=== PATIENT | female | born 1965 | race Caucasian/White ===

== ENCOUNTER 2017-03-23 11:10 | Inpatient (IN) | payer BC ==
[2017-03-23] MEDS ORDERED: NITROGLYCERIN SL TABS 0.4 MG TAB SUBLINGUAL PRN (14:36)
[2017-03-23] MEDS ORDERED: ALBUTEROL NEBULIZED 2.5 MG/3 ML INHALATION PRN (14:39)
[2017-03-23 15:52] LABS: INR 1.1 (<1.2); Partial Thromboplastin Time 24.9 sec (22.0-30.0); Prothrombin Time 11.1 sec (9.0-12.0)
[2017-03-23 15:53] LABS: ALT 36 U/L (9-52); AST 23 U/L (14-36); Alkaline Phosphatase 58 U/L (38-126); Anion Gap 9 mmol/L; Blood Urea Nitrogen 9 mg/dL (7-17); Calcium 9.3 mg/dL (8.4-10.2); Carbon Dioxide 27 mmol/L (22-30); Chloride 103 mmol/L (98-107); Glucose 104 mg/dL (74-99); Magnesium 1.6 mg/dL (1.6-2.3); Non-African American GFR(MDRD) >60 (>60 ml/min/1.73 sqM); Potassium 4.3 mmol/L (3.5-5.1); Sodium 139 mmol/L (137-145); Total Bilirubin 0.9 mg/dL (0.2-1.3); Total Protein 6.2 g/dL (6.3-8.2)
[2017-03-23 15:54] LABS: Basophils % (A) 1 %; CHCM 34.3; Eosinophils # (A) 0.1 k/uL (0-0.7); Eosinophils % (A) 2 %; HCT 39.4 % (34.0-46.0); HDW 2.46; HGB 13.1 gm/dL (11.4-16.0); Luc # (Auto) 0.14; Luc % (Auto) 3; Lymphocytes # (A) 1.8 k/uL (1.0-4.8); Lymphocytes % (A) 34 %; MCH 31.3 pg (25.0-35.0); MCHC 33.3 g/dL (31.0-37.0); MCV 93.9 fL (80.0-100.0); Mean Platelet Volume 7.5; Monocytes # (A) 0.3 k/uL (0-1.0); Monocytes % (A) 5 %; Neutrophils # (A) 2.9 k/uL (1.3-7.7); Neutrophils % (A) 56 %; RDW 13.6 % (11.5-15.5); WBC 5.3 k/uL (3.8-10.6); WBC (Perox) 5.69
[2017-03-23] MEDS ORDERED: ALPRAZolam 0.25 MG TAB PO SCH (16:00)
[2017-03-23 16:03] LABS: Creatine Kinase 45 U/L (30-135)
[2017-03-23 16:16] LABS: Creatine Kinase MB <0.2 ng/mL (0.0-2.4); Troponin I <0.012 ng/mL (0.000-0.034)
[2017-03-23] MEDS: HEPARIN SODIUM,PORCINE 5,000 UNIT/ML 1 ML VIAL SQ SCH ×2 (17:00→21:14)
[2017-03-23] MEDS: SODIUM CHLORIDE 0.9% 1,000 ML IV SCH ×2 (17:03→22:40)
[2017-03-23] MEDS: CARVEDILOL 3.125 MG TAB PO SCH (18:25)
[2017-03-23] MEDS: RANOLAZINE 500 MG TAB.ER.12H PO SCH (21:04)
[2017-03-23] MEDS: CITALOPRAM HYDROBROMIDE 20 MG TAB PO SCH (21:04)
--- NOTE | 2017-03-23 21:35 | HP ---
DATE OF ADMISSION: 03/23/2017 CHIEF COMPLAINT: Shortness of breath with chest pain. This is a 51-year-old white female who has had a blood pressure that has been down between 80 and 90 going into nearly a week, decreasing her Demadex, and blood pressure has been up to somewhere between 90 and 100, and then she has also had shortness of breath and non-specific chest pain. She had one episode of diaphoresis. A troponin was done which was negative. The episodes have been much less this last weekend, but because of their consistency and her long- standing history of coronary artery disease, she was placed in the hospital accordingly. She has a past medical history of: 1. Advanced coronary artery disease. On 03/19/12 she had a 3-vessel bypass at [facility] in [place]. She had stent placements x2 on 12/07/13 at the same hospital. 2. Long-standing history of hyperlipidemia. 3. Long-standing history of coronary artery disease in the family. 4. She has had some GE reflux. 5. Tobacco abuse up to 1 pack a day. 6. Anxiety neurosis. 7. Previous myocardial infarction. Her medications at this time are: 1. Atorvastatin 40 mg at bedtime. 2. Singulair 10 mg a day. 3. Holly-24 p.r.n. 4. Centrum vitamin. 5. Ranexa 500 mg b.i.d. 6. Aspirin 81 mg. 7. Flonase 50 mg in the right and left nostril in the morning. 8. Xanax 0.25 p.r.n. q.6 hours for anxiety. 9. Ventolin inhaler 2 puffs q.6 hours p.r.n. 10. Coreg 3.125; 2 in the morning, one at bedtime. 11. Zetia 10 mg. 12. Omeprazole 20 mg. 13. Potassium chloride 8 mg. 14. ( ) 15 mg p.r.n. to sleep. 15. Plavix 75. 16. Celexa 20 mg at bedtime. HER SURGICAL HISTORY: 1. Wrist fracture on 08/29/2010. 2. Septoplasty [address] Dr. Higuera in 06/2013. She is taken care of by Dr. Avendaño and has seen him most recently in October of 2016. REVIEW OF SYSTEMS: CARDIOPULMONARY: Shortness of breath. One episode of diaphoresis. Dyspnea with minimal amount of exertion. No paroxysmal nocturnal dyspnea. Two-pillow orthopnea. No cough. No shortness of breath. Negative chest x-ray in the office. GI: No hematemesis, melena, hematochezia. No constipation. No diarrhea. : Normal urination. NEUROMUSCULAR: Good strength in her arms and her legs. She has no back problems. INTEGUMENTARY: The skin has been normal. ENDOCRINE: No excessive weight gain. No extreme fatigue. PHYSICAL EXAMINATION: Today blood pressure was 100/80. She weighed in at 133. Temperature 98.7. Pulse rate was 67. Oxygen saturation was 98%. A Holter monitor that she finished on Thursday was reviewed. She had a few PVCs; otherwise within normal limits. The patient is alert and well oriented to person, place and thing; a little bit anxious, but no evidence of depression. EYES: Pupils are equal, round, reactive to light and accommodation. Good extraocular movements. ENT showed tympanic membranes and pharynx to be negative. NECK: Supple with midline trachea. Good carotid upstroke. CHEST: Essentially clear to auscultation. HEART: Sinus rhythm with no murmur. ABDOMEN: Soft, non-tender, with no organomegaly. EXTREMITIES: She has good strength bilaterally, both upper and lower. She has good palpable lower extremity pulses. Rectal and pelvic examination was deferred. LUMBAR SPINE: Major motion is within normal limits. INTEGUMENT: Fine. ENDOCRINE: Within normal limits, with no excessive hair loss, growth. ASSESSMENT: 1. Acute coronary artery disease with history of 3-vessel CABG. 2. Hyperlipidemia. 3. Percutaneous stent placement on 12/07/13. 4. Now hypotension. 5. Acute angina-type symptoms. 6. Gastroesophageal reflux. 7. Allergic rhinitis. 8. History of wheeze. PLAN: Renewed all her medications. Put her into hospital accordingly. Heparinized her. Will have Cardiology see her with the possibility of a stress test versus probable cardiac catheterization. Please refer to my orders. MTDD
[2017-03-23] MEDS: ALPRAZolam 0.25 MG TAB PO PRN (22:41)
[2017-03-24] MEDS ORDERED: AMINOPHYLLINE 500 MG/20 ML VIAL IV PRN (07:50)
[2017-03-24] MEDS ORDERED: REGADENOSON 0.4 MG/5 ML SYRINGE IV ONE (07:50)
[2017-03-24] MEDS ORDERED: CLOPIDOGREL 75 MG TAB PO SCH (09:00)
--- NOTE | 2017-03-24 11:05 | NM ---
EXAMINATION TYPE: NM stress lexiscan cardiolite DATE OF EXAM: 03/24/2017 COMPARISON: NONE HISTORY: Precordial chest pain and abnormal EKG TECHNIQUE: After the intravenous administration of 10.7 mCi Tc 99m Sestamibi - Cardiolite resting SP ECT images acquired 45 minutes post injection. The patient received 0.4mg Lexiscan, 26.9 mCi Tc 99m Sestamibi - Stress images obtained [address] injection FINDINGS: Review of stress and rest SPECT images demonstrates worsening decreased perfusion involving the anter ior wall as well as the anteroapical region. Underlying stress-induced ischemia is not excluded. [place] d analysis shows normal wall motion with an estimated left ventricular ejection fraction of %. IMPRESSION: worsening decreased perfusion involving the anterior wall as well as the anteroapical region. Underly ing stress-induced ischemia is not excluded.
--- NOTE | 2017-03-24 11:24 | EST ---
DATE OF SERVICE: 03/24/17 TYPE OF REPORT: Lexiscan Stress Test INDICATIONS: Evaluation for progression of coronary artery disease in a patient with previous bypass surgery, PCI and hospitalization with chest pain without troponin elevation. BASELINE HEART RATE: 54 BASELINE BLOOD PRESSURE: 125/63 MAXIMUM HEART RATE: 99 MAXIMUM BLOOD PRESSURE: 116/73 85% MPHR 144 100% MPHR 169 METS: MAXIMUM STAGE REACHED: TOTAL EXERCISE TIME: Baseline EKG revealed a normal sinus rhythm without significant ST-T changes. There were minor nonspecific ST abnormalities in the lateral leads noted. Poor R wave progression was noted. With Lexiscan administration, the patient had nondescript burning sensation in the chest that was transient. Heart rate changed from 54 to 95 beats a minute and blood pressure changed to 105/63 to 116 /63. EKG remained unchanged with mild resting changes. By EKG criteria, this is considered an unremarkable Lexiscan stress test even though there were minor resting changes to begin with. The patient did not have any clear cut angina. The nuclear scans which are more pertinent will be reported by the radiologist. MADONNA
--- NOTE | 2017-03-24 11:24 | ECHOF ---
Referral Reason:chest pain MEASUREMENTS -------- HEIGHT: 162.6 cm WEIGHT: 60.3 kg BP: 100/65 RVIDd: 2.5 cm (< 3.3) IVSd: 1.1 cm (0.6 - 1.1) LVIDd: 4.0 cm (3.9 - 5.3) LVPWd: 1.1 cm (0.6 - 1.1) IVSs: 1.4 cm LVIDs: 2.7 cm LVPWs: 1.4 cm LA Diam: 2.6 cm (2.7 - 3.8) LAESV Index (A-L): 22.57 ml/m Ao Diam: 3.2 cm (2.0 - 3.7) AV Cusp: 1.9 cm (1.5 - 2.6) MV EXCURSION: 17.701 mm (> 18.000) MV EF SLOPE: 83 mm/s (70 - 150) EPSS: 0.4 cm MV E Alfredo: 0.72 m/s MV DecT: 284 ms MV A Alfredo: 0.75 m/s MV E/A Ratio: 0.96 RAP: 5.00 mmHg RVSP: 23.14 mmHg FINDINGS -------- Sinus rhythm. This was a technically good study. The left ventricular size is normal. There is borderline concentric left ventricular hypertrophy. Overall left ventricular systolic function is low-normal with, an EF between 50 - 55 %. Septal wall motion is delayed and consistent with prior cardiac surgery. Mid anterior LV wall motion is hypokinetic. The right ventricle is normal in size. Normal LA size by volume 22+/-6 ml/m2. The right atrium is normal in size. The aortic valve is trileaflet and appears structurally normal. Mild mitral regurgitation is present. Mild tricuspid regurgitation present. Right ventricular systolic pressure is normal at < 35 mmHg. Trace/mild (physiologic) pulmonic regurgitation. The aortic root size is normal. Normal inferior vena cava with normal inspiratory collapse consistent with estimated right atrial pressure of 5 mmHg. There is no pericardial effusion. CONCLUSIONS -------- 1. Sinus rhythm. 2. The right atrium is normal in size. 3. The aortic valve is trileaflet and appears structurally normal. 4. Mild mitral regurgitation is present. 5. Mild tricuspid regurgitation present. 6. Right ventricular systolic pressure is normal at < 35 mmHg. 7. Trace/mild (physiologic) pulmonic regurgitation. 8. The aortic root size is normal. 9. Normal inferior vena cava with normal inspiratory collapse consistent with estimated right atrial pressure of 5 mmHg. 10. There is no pericardial effusion. 11. This was a technically good study. 12. The left ventricular size is normal. 13. There is borderline concentric left ventricular hypertrophy. 14. Overall left ventricular systolic function is low-normal with, an EF between 50 - 55 %. 15. Septal wall motion is delayed and consistent with prior cardiac surgery. 16. Mid anterior LV wall motion is hypokinetic. 17. The right ventricle is normal in size. 18. Normal LA size by volume 22+/-6 ml/m2. POWER ELECTRONICS RESEARCH ENGINEER: Carli Linton RDCS
[2017-03-24] MEDS ORDERED: SODIUM CHLORIDE 0.9% 1,000 ML in EMPTY BAG 1 BAG IV ONE (11:53)
--- NOTE | 2017-03-24 12:02 | P.PN ---
Progress Note - Text Lexiscan stress test report indicates worsening decreased perfusion involving the anterior wall as well as the freddy-apical region. Underlying stress- induced ischemia cannot be excluded. Dr. DANIELLE Avendaño aware. We will plan for cardiac catheterization tomorrow morning at 8:30. Case has been boarded and orders have been placed. Results have been explained to patient and her , questions answered appropriately with verbalized understanding. I have discussed the risks, benefits and alternative therapies for the above-mentioned procedure and for both sedation/analgesia as well as necessary blood product administration, if indicated, as they pertain to this patient. The patient has indicated understanding and acceptance of the risks and procedures discussed. She agrees to move forward with the procedure as scheduled. Nurse Practitioner note has been reviewed, I agree with a documented findings and plan of care. Patient was seen and examined.
[2017-03-24] MEDS: MONTELUKAST 10 MG TAB PO SCH (12:10)
[2017-03-24] MEDS: ASPIRIN 81 MG CHEW PO SCH (12:10)
[2017-03-24] MEDS: RANOLAZINE 500 MG TAB.ER.12H PO SCH ×2 (12:10→22:36)
[2017-03-24] MEDS: PANTOPRAZOLE 40 MG TABLET PO SCH (12:10)
[2017-03-24] MEDS: ATORVASTATIN 40 MG TAB PO SCH (12:10)
[2017-03-24] MEDS: POTASSIUM CHLORIDE ER 10 MEQ TAB.ER.PRT PO SCH (12:10)
[2017-03-24] MEDS: CARVEDILOL 3.125 MG TAB PO SCH ×2 (12:10→22:47)
[2017-03-24] MEDS: EZETIMIBE 10 MG TAB PO SCH (12:11)
[2017-03-24] MEDS: MULTIVITAMINS, THERA 1 EACH TAB PO SCH (12:11)
[2017-03-24] MEDS: HEPARIN SODIUM,PORCINE 5,000 UNIT/ML 1 ML VIAL SQ SCH ×2 (12:11→22:36)
--- NOTE | 2017-03-24 12:28 | PN ---
This is a 51 -year-old white female with well known established history of coronary artery disease who has noticed over the last ten days blood pressure is systolic between 80 and 90. We decreased her Demadex and blood pressure has been up some to right around 190. Unfortunately, she continues with shortness of breath and nonspecific chest pain, mostly exertional in nature. She has longstanding history of coronary artery disease and she has not felt like this since before her bypass surgery or before stent placement. The episodes have been episodic. We have tried different outpatient treatment modalities after her troponin was negative including dropping her Demadex which brought up her blood pressure. At this period of time, her chest pain continued, both exertional and nonexertional. She was placed in the hospital accordingly. She has past medical history of advanced coronary artery disease. On 03/19/12 she had three vessel bypass at [facility] and then she had two stent placements on 12/07/13 at the same hospital. She has longstanding history of hyperlipidemia. There is longstanding history of coronary artery disease in the family. She has GE reflux, tobacco use up to a pack a day, previous anxiety neurosis and previous myocardial infarction. Her anxiety is moderate. 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 Her medications include that of: 1. Atorvastatin 40 mg at bedtime. 2. Singulair 10 mg daily. 3. Holly 24 plain. 4. Centrum vitamin. 5. Ranexa 500 mg b.i.d. 6. Lasix 81 mg daily. 7. Flonase nasal spray in the morning. 8. Xanax 0.25 o1xtlep prn. 9. Ventolin inhalation two puffs four times a day prn wheeze. 10. Coreg 3.125 b.i.d. 11. Zetia 10 mg. 12. Omeprazole 20 mg daily. 13. Potassium chloride 8 meq. 14. Belsoma 15 mg prn for insomnia. 15. Plavix 75 one daily. 16. Celexa 20 mg daily. Her surgical history is that of a right wrist fracture repaired by Dr. Horan on 08/29/10. Septoplasty by Dr. Higuera 06/2013. Dr. Mari Avendaño is her occupational therapy manager and most recently saw him in October 2016. Her review of systems at this time has been shortness of breath for cardiopulmonary including last night was persistent shortness of breath. No diaphoresis last night but she has had several over the last week, dyspnea with a minimal amount of exertion even going to the bathroom. No paroxysmal nocturnal dyspnea. She has two pillow orthopnea. No cough or shortness of breath. Her chest x-ray in the office was negative. GI: She has no hematemesis, melena, hematochezia. No constipation or diarrhea. : Normal urination. No urinary tract infections previously. Neuromuscular: She has good strength in her arms and legs. She does not have back pain at this time. Integumentary: Her skin has been normal. Endocrine: No excessive weight gain. No fatigue. Her vital signs this morning: She is alert, well oriented to person, place and thing. Anxious to get things underway. Her blood pressure this morning is 96 /57. Her heart rate is 57. Temperature is 97.8. O2 sat 96 on room air. EYES: Pupils equal, round, reactive to light and accommodation. ENT showed tympanic membranes and pharynx to be negative. Neck is supple with midline trachea. Chest essentially clear to auscultation. Heart is sinus rhythm with no murmur. Abdomen soft, nontender with no organomegaly. Extremities within normal limits. Skin is within normal limits. Laboratory data: CBC within normal limits. Chem-17 within normal limits. ASSESSMENT: 1. Coronary artery disease with three vessel bypass and two stent placement. 2. Hyperlipidemia. 3. Resolving hypotension, acute angina type symptoms. 4. GE reflux. 5. Allergic rhinitis. 6. History of wheeze. Reviewed all medications. Put her in the hospital. She has been heparinized. Cardiology to see her with probability of cardiac cath. [facility]
--- NOTE | 2017-03-24 12:40 | CONS ---
This is a 51-year-old lady with a known history of CAD, previous bypass surgery and PCI who was seen by me in October of this year. In 2014, she had a Lexiscan stress test, which revealed a small area of partial reversibility probably in the diagonal distribution and the diagonal vein graft is occluded. Ejection fraction was actually fairly well preserved. Atypical septal motion was noted. She has been doing well on medical therapy, but of late she first had some episodes of hypotension. Her Demadex, which was on 20 mg ( ) was cut down and then she started having increasing shortness of breath with physical activity and then developed chest pressure suggestive of angina. With these symptoms, she came into the hospital. She is resting comfortably at this time. Troponins are normal. EKG does not reveal any acute changes. I am recommending that we will do a Lexiscan stress test. Continue current medical regimen and an echocardiogram and based on clinical course I will make further recommendations. PAST MEDICAL HISTORY: 1. CAD with previous bypass surgery that was performed in March of [address] [place]. As recently as 2013, she had a coronary angiography and balloon angioplasty of circumflex along with 2 drug eluting stents to the circumflex vessel. Apparently, the [place] circumflex was opened up and vein graft of the circumflex as well as the diagonal was occluded, but the left internal mammary artery to LAD was widely patent. Since then, she has had a stress test in August of 2014, which revealed that the circumflex distribution was well perfused, but the diagonal distribution still had a fixed defect with partial reversibility. Stenting of circumflex was performed in November ( ) with 2 drug eluting stents of 2.5 and 2.25 caliber respectively. Her RINCON to LAD was widely patent, but the vein graft to the diagonal and the circumflex are occluded. Diagonal branch was not intervened. 2. Hypertension. 3. Hyperlipidemia. 4. Strong family history of CAD. 5. History of smoking in the past, which she claims she has quit completely. Medications at home include: Aspirin 81 mg daily, Plavix 75 mg daily, BuSpar 10 mg b.i.d., Ranexa 500 mg b.i.d. She takes Demadex and potassium, albuterol inhaler, carvedilol 3.125 mg b.i.d., Lipitor 40 mg daily, Zetia 10 mg daily. She also takes Celexa 20 mg daily. ALLERGIES: No known drug allergies. On examination, blood pressure initially was low, but this morning as it is about 109/70, pulse rate is 68 per minute and regular. HEENT: Unremarkable. Fundus was not examined by me. Neck is supple. No JVD. I do not hear any carotid bruit. There is no thyromegaly. Heart exam reveals S1, S2 heard normally without a rub, murmur or gallops. Lungs are clear. Abdomen is soft, nontender. Lower extremities reveal normal pulses. No edema. Central nervous system is normal. EKG revealed sinus mechanism with minor nonspecific ST-T changes. IMPRESSION: 1. Symptoms suggestive of unstable angina in a patient with a prior bypass surgery and PCI. 2. History of coronary artery bypass graft in 2011, March, with 2 vein grafts to the diagonal and circumflex, both of which were occluded on a cath of 2013. 3. Left internal mammary artery to left anterior descending artery is patent. 4. Status post PCI of circumflex with 2 drug eluting stents in November of 2013. 5. Hyperlipidemia. 6. Family history of coronary artery disease. 7. Past history of smoking. RECOMMENDATIONS: I am recommending an echo, a Lexiscan stress test and based on this, I will make further recommendations. Patient's troponins are normal and she has not had any recurrence of symptoms while she was here. Thank you very much for the consult. MADONNA
[2017-03-24] MEDS ORDERED: HEPARIN SODIUM,PORCINE 5,000 UNIT/ML 1 ML VIAL IV PRN (13:50)
[2017-03-24] MEDS ORDERED: HEPARIN SODIUM,PORCINE/D5W PMX 25,000 UNIT in DEXTROSE/WATER 1 500ML.BAG IV SCH (14:00)
[2017-03-24 14:59] LABS: INR 1.1 (<1.2); Partial Thromboplastin Time 25.7 sec (22.0-30.0)
[2017-03-24] MEDS: ACETAMINOPHEN TAB 325 MG TAB PO PRN (19:26)
[2017-03-24] MEDS: NITROGLYCERIN OINT 1 INCH/GM PACKET TOPICAL SCH (19:26)
[2017-03-24] MEDS: DEXTROSE 5%-0.45% NACL 1,000 ML IV SCH (19:56)
[2017-03-24] MEDS: CITALOPRAM HYDROBROMIDE 20 MG TAB PO SCH (22:36)
[2017-03-24] MEDS: ALPRAZolam 0.25 MG TAB PO PRN (22:46)
[2017-03-25] MEDS: NITROGLYCERIN OINT 1 INCH/GM PACKET TOPICAL SCH ×2 (02:48→06:05)
[2017-03-25] MEDS ORDERED: ASPIRIN 325 MG TAB PO ONE (06:00)
[2017-03-25] MEDS: HEPARIN SODIUM,PORCINE 5,000 UNIT/ML 1 ML VIAL SQ SCH ×2 (06:05→21:01)
[2017-03-25] MEDS: ASPIRIN 81 MG CHEW PO SCH (06:05)
[2017-03-25] MEDS: DEXTROSE 5%-0.45% NACL 1,000 ML IV SCH ×2 (06:23→16:14)
[2017-03-25] MEDS: RANOLAZINE 500 MG TAB.ER.12H PO SCH ×2 (06:54→21:21)
[2017-03-25] MEDS: EZETIMIBE 10 MG TAB PO SCH (06:54)
[2017-03-25] MEDS: PANTOPRAZOLE 40 MG TABLET PO SCH (06:54)
[2017-03-25] MEDS: CLOPIDOGREL 75 MG TAB PO SCH ×2 (06:55→16:07)
[2017-03-25] MEDS: MONTELUKAST 10 MG TAB PO SCH (06:55)
[2017-03-25] MEDS: POTASSIUM CHLORIDE ER 10 MEQ TAB.ER.PRT PO SCH (06:55)
[2017-03-25] MEDS: ATORVASTATIN 40 MG TAB PO SCH (06:55)
[2017-03-25 07:33] LABS: Basophils % (A) 1 %; CH 31.9; Eosinophils # (A) 0.2 k/uL (0-0.7); Eosinophils % (A) 3 %; HCT 42.6 % (34.0-46.0); Luc # (Auto) 0.15; Luc % (Auto) 2; Lymphocytes # (A) 2.3 k/uL (1.0-4.8); Lymphocytes % (A) 38 %; MCH 30.8 pg (25.0-35.0); MCHC 32.7 g/dL (31.0-37.0); MCV 94.1 fL (80.0-100.0); Mean Platelet Volume 7.6; Monocytes # (A) 0.3 k/uL (0-1.0); Monocytes % (A) 5 %; Neutrophils # (A) 3.2 k/uL (1.3-7.7); Neutrophils % (A) 52 %; RBC 4.53 m/uL (3.80-5.40); RDW 13.8 % (11.5-15.5); WBC 6.1 k/uL (3.8-10.6); WBC (Perox) 6.27
[2017-03-25] MEDS ORDERED: IV FLUID CONTINUATION 1,000 ML IV ONE (09:00)
[2017-03-25] MEDS ORDERED: diphenhydrAMINE 50 MG/ML 1 ML VIAL IVP ONE (09:24)
[2017-03-25] MEDS ORDERED: MIDAZOLAM 2 MG/2 ML VIAL IV ONE ×2 (09:24)
[2017-03-25] MEDS ORDERED: LIDOCAINE 2% INJ 20 MG/ML SQ ONE (09:25)
[2017-03-25] MEDS ORDERED: BIVALIRUDIN BOLUS 250 MG/50 ML IV ONE (09:46)
[2017-03-25] MEDS ORDERED: BIVALIRUDIN 250 MG in SODIUM CHLORIDE 0.9% 50 ML IV ONE (09:47)
[2017-03-25] MEDS: NITROGLYCERIN 1000MCG/10ML SYRINGE INTRAARTER ONE ×2 (10:04→10:10)
[2017-03-25] MEDS ORDERED: CLOPIDOGREL 75 MG TAB PO ONE (10:21)
[2017-03-25] MEDS ORDERED: IOHEXOL 350 MG/ML 100 ML BOTTLE INJ ONE (10:21)
[2017-03-25] MEDS ORDERED: ALBUTEROL NEBULIZED 2.5 MG/3 ML INHALATION PRN (10:27)
[2017-03-25] MEDS ORDERED: MAG HYDROX/AL HYDROX/SIMETH 30 ML CUP PO PRN (10:29)
[2017-03-25] MEDS ORDERED: RX INFO: IV CONTRAST WAS GIVEN 1 EACH MISC MISCELLANE PRN (10:29)
[2017-03-25] MEDS ORDERED: ATROPINE SULFATE 0.1 MG/ML 10ML SYRINGE IV PRN (10:29)
[2017-03-25] MEDS: SODIUM CHLORIDE 0.9% 1,000 ML IV SCH (16:13)
[2017-03-25] MEDS: MULTIVITAMINS, THERA 1 EACH TAB PO SCH (16:17)
--- NOTE | 2017-03-25 16:52 | PN ---
This is a 51-year-old white female who had some blood pressure drops to the 80s and 90s systolically. We decreased her Demadex and her blood pressure than came up to 90 to 100. Of interest was that she was also having shortness of breath and non-specific chest pain with one episode of diaphoresis that was variant over a period of 2 weeks. With increasing her blood pressure, some of this went away. She had a Holter monitor in my office which was basically within normal limits. EKG. Negative troponins. But patient was quite sure this was evidence of previous angina type of symptomatology. She was placed in the hospital at this time for evaluation. Consultation with Dr. Mari Avendaño; he insisted on a stress test before cardiac catheterization. She had a positive stress test and is now having a cardiac catheterization. She has a past medical history of having advanced coronary artery disease. On 05/21 she had 3-vessel bypass at [facility] in [place]. Then she had stent placement x2 on 12/07/13 at the same hospital. Long-time patient of Dr. Juárez in [place] and a patient of [facility] over the last 7 or 8 years. Now she is seeing Dr. Stephania Avendaño in [place]. She has a long-standing history of hypertension. She has advanced coronary artery disease in her family. She has GE reflux. She used to smoke for a good 20 years. She has anxiety neurosis and previous myocardial infarction. Her hyperlipidemia has been stable. She is a non-smoker. She does not have diabetes and her cholesterol has been under excellent control. Medications include: 1. Atorvastatin 40 mg a day. 2. Singulair 10 daily. 3. Holly-24 p.r.n. 4. Centrum vitamin. 5. Ranexa 500 mg b.i.d. 6. Aspirin 81 mg. 7. Flonase 50 mg at night in right and left nostrils. 8. Xanax 0.25 p.r.n. q.6 hours anxiety. 9. Ventolin inhaler 2 puffs 4 times a day. 10. Coreg 3.125 two pills in the morning, one at bedtime. 11. Zetia. 12. Half inch of nitro patch was placed last night when she was having some non- specific chest pain, and it did resolve. 13. Omeprazole 20 mg a day. 14. Potassium chloride 8 mg a day. 15. Belsomra 15 mg at bedtime. 16. Plavix 75 daily. 17. Celexa 20 mg at bedtime. Her previous surgical history is still indicative of: 1. Wrist fracture repair by Dr. Horan on 08/29/14. 2. Septoplasty by Dr. Higuera on 09/29. REVIEW OF SYSTEMS: CARDIOPULMONARY: Shortness of breath. She did have one episode of diaphoresis. She had dyspnea with minimal amount of activity. She had no paroxysmal nocturnal dyspnea. She has 2-pillow orthopnea. No cough. No shortness of breath. Chest x-ray in the negative was negative. GI: No hematemesis, melena, hematochezia. No constipation. No diarrhea. GENITOURINARY: Normal. NEUROMUSCULAR: Good strength in the arms and legs. She has no back problems at this time. INTEGUMENTARY: Skin has been normal. ENDOCRINE: She has no excessive weight gain, but she has had extreme fatigue. NEW LABS TODAY: WBC of 6.1 and hemoglobin 14. Troponin has been negative. VITALS SIGNS AT THIS POINT: Blood pressure 110/64, pulse rate 67, respiratory rate 16. Temperature 98. She is alert and well oriented to person, place and thing. EYES: Pupils are equal, round and reactive to light and accommodation. Good extraocular movements. ( ) conjunctivae normal. ENT shows dry mouth. Tympanic membranes are negative. Neck is supple with a midline trachea. Chest is essentially clear to auscultation. Heart is sinus rhythm with no murmur. Negative S3. Negative S4. Abdomen is soft, non-tender, with no organomegaly. Lower extremities have good palpable pulses bilaterally. She has good strength in her arms and her legs. INTEGUMENTARY: Normal. PSYCHIATRIC: She is anxious but she is alert, well-oriented to person, place and thing. Her back is within normal limits. ASSESSMENT AT THIS POINT: We just finished talking with Dr. Mari Avendaño. I was in the labor operator when it showed that she had basically blockage in her previous stent placement of the circumflex. That was just opened up and she had very, very good response at this point ( ) able to do that. 1. Coronary artery disease with advanced blockage in the circumflex. It was opened up by Dr. Stephania Avendaño. Some moderate disease in the right coronary artery. 2. Previous history of myocardial infarction. 3. Hyperlipidemia. 4. Previous tobacco use; has now stopped for many years. 5. Gastroesophageal reflux. 6. Anxiety neurosis. 7. Mild history of asthma. 8. Depression, which has been stable. PLAN: She had good results. Will continue to monitor her medications. Some basic changes are there. I talked with Dr. Stephania Avendaño and I talked with her life -in boyfriend, Isra. She will be discharged hopefully with no complications in the morning. MADONNA
[2017-03-25] MEDS: CARVEDILOL 3.125 MG TAB PO SCH (18:26)
[2017-03-25] MEDS: ALPRAZolam 0.25 MG TAB PO PRN (21:01)
[2017-03-25] MEDS: ACETAMINOPHEN TAB 325 MG TAB PO PRN (21:01)
[2017-03-25] MEDS: busPIRone HCl 10 MG TAB PO SCH (21:21)
[2017-03-25] MEDS: CITALOPRAM HYDROBROMIDE 20 MG TAB PO SCH (21:21)
--- NOTE | 2017-03-25 21:29 | CC ---
DATE OF SERVICE: 03/25/2017 PROCEDURE: Left heart catheterization, coronary angiography and selective injection of the RINCON graft. PERFORMED BY: Dr. Mari Avendaño CLINICAL INFORMATION: Mrs. Francine Zeng is a 51-year-old lady with a known history of CAD, previous bypass surgery and PCI. She has strong family history of CAD. She came into the hospital with symptoms of angina and had a positive stress test with apical lateral reversible defect suggestive of ischemia in addition to a fixed defect in the mid anterior wall. She was advised coronary angiography after an explanation of risks, benefits, options and rationale. PROCEDURE NOTE: Under local anesthesia and strict aseptic precautions, a 6 German introducer was placed in the right femoral artery. Using a standard left Judkin catheter, I performed selective coronary angiography of the left system. Using a Basilio catheter, I performed selective coronary angiography of the right coronary artery and the RINCON. Patient had actually 3 bypasses. One was a RINCON to LAD. The other 2 are vein grafts to circumflex and diagonal, both of which were occluded, and I therefore did not perform any selective injection of these grafts. Following this, I noted that she had a significant lesion in the circumflex that was stented in 2013. I proceeded to perform intervention in the same setting. Following the intervention, I performed LV pressures but did do an LV gram. Pigtail catheter was used. CARDIAC CATHETERIZATION FINDINGS The left ventricular end-diastolic pressure was about 12 to 13 mmHg without any gradient across the aortic valve. LV gram was not performed. CORONARY ANGIOGRAPHY FINDINGS LEFT MAIN CORONARY ARTERY: Short, patent, disease-free vessel that bifurcates into LAD and circumflex. LEFT ANTERIOR DESCENDING CORONARY ARTERY: This vessel is totally occluded in the mid portion with some diffuse disease involving the diagonal and septal branches, but the LAD has a total mid occlusion. LEFT POSTERIOR CIRCUMFLEX CORONARY ARTERY: This vessel had a stent placed in the first obtuse marginal, which were actually 2 drug-eluting stents placed in the same vessel, 2.5 caliber proximal and 2.25 caliber distally. Within the stented segment at the site where the bypass graft was attached, there is an eccentric 70% to 75% stenosis, which may explain the ischemia on the stress test. The rest of the circumflex had mild diffuse disease noted throughout, but no critical lesions were detected. RIGHT CORONARY ARTERY: This is a dominant vessel; has 30% to 40% minor irregularities throughout. Distally bifurcates into PDA and PLV. Supplies a sizeable amount of myocardium. There is no significant disease noted. LEFT INTERNAL MAMMARY ARTERY GRAFT TO LAD: This graft is widely patent at its origin, course, insertion site, and opacified LAD is free of significant disease. It goes back and fills its diagonal branches to a small extent. No significant disease in the RINCON graft is noted. FINAL IMPRESSION: This patient has restenosis within the stented segment of circumflex. The stent was performed in November 2013. The RINCON to LAD is open. Vein grafts were supposedly closed. [place] RCA, which is dominant, has moderate 30% to 40% non-critical disease. LAD has total occlusion in the mid portion. RECOMMENDATIONS: I recommend intervention of the circumflex marginal and proceeded to perform this in the same setting. SURID
--- NOTE | 2017-03-25 21:43 | PTCA ---
DATE OF SERVICE: 03/26/2017 PROCEDURE: PTCA and stenting of in-sent restenosis within circumflex marginal. PERFORMED BY: Dr. Mari Avendaño. PROCEDURE NOTE: Existing 6 Georgian introducer was used to perform the procedure. A standard left Judkin guide catheter of 6 Georgian caliber was used to cannulate the left coronary artery. I used a Whisper wire with a straight tip and a curve , and with this I crossed the lesion. Predilatation was performed using a 2.5 caliber 12 mm long NC Trek balloon. Then I advanced a 2.5 caliber 12 mm long Xience stent, deployed this at 13 atmospheres, noted that there was still a lesion in the mid portion, and then I went back in with a 3.0 caliber 8 mm long NC Trek balloon of 3.0 caliber and I dilated this at 13 atmospheres. Excellent angiographic result was achieved. Patient had mild chest discomfort, no EKG changes. Patient received Angiomax bolus and infusion as per protocol. Excellent angiographic results without complication was achieved. AngioSeal device was used to secure hemostasis, and she was sent to the room in stable condition. But because of some oozing I applied a FemStop as well. Excellent angiographic result without complication was noted. Results were discussed with the patient and her friend Isra, who was available in the waiting room. Moderate conscious sedation was provided for a total duration of 75 minutes for this patient. Combination of Versed and Benadryl was used. [facility]
[2017-03-26] MEDS: SODIUM CHLORIDE 0.9% 1,000 ML IV SCH (00:03)
[2017-03-26 01:12] VITALS: TEMP 97.3
[2017-03-26 06:17] VITALS: RESP 18
[2017-03-26] MEDS: CARVEDILOL 3.125 MG TAB PO SCH (06:40)
[2017-03-26] MEDS: PANTOPRAZOLE 40 MG TABLET PO SCH (06:40)
[2017-03-26 06:45] LABS: Anion Gap 8 mmol/L; Calcium 9.1 mg/dL (8.4-10.2); Carbon Dioxide 23 mmol/L (22-30); Chloride 111 mmol/L (98-107); Cholesterol 139 mg/dL (<200); Glucose 83 mg/dL (74-99); HDL Cholesterol 50 mg/dL (40-60); Non-African American GFR(MDRD) >60 (>60 ml/min/1.73 sqM); Sodium 142 mmol/L (137-145)
[2017-03-26 06:53] LABS: Blood Urea Nitrogen 9 mg/dL (7-17); Potassium 4.6 mmol/L (3.5-5.1)
[2017-03-26 07:58] LABS: Basophils % (A) 1 %; CH 31.8; CHCM 33.7; Eosinophils # (A) 0.1 k/uL (0-0.7); Eosinophils % (A) 3 %; HCT 38.1 % (34.0-46.0); HDW 2.51; HGB 12.9 gm/dL (11.4-16.0); Luc # (Auto) 0.12; Luc % (Auto) 2; Lymphocytes # (A) 1.4 k/uL (1.0-4.8); Lymphocytes % (A) 27 %; MCH 32.1 pg (25.0-35.0); MCHC 33.9 g/dL (31.0-37.0); MCV 94.8 fL (80.0-100.0); Mean Platelet Volume 7.6; Monocytes # (A) 0.3 k/uL (0-1.0); Monocytes % (A) 6 %; Neutrophils # (A) 3.1 k/uL (1.3-7.7); Neutrophils % (A) 61 %; RBC 4.02 m/uL (3.80-5.40); RDW 13.6 % (11.5-15.5); WBC 5.1 k/uL (3.8-10.6); WBC (Perox) 5.32
[2017-03-26] MEDS ORDERED: BUDESONIDE 0.5 MG/2 ML NEBU INHALATION SCH (08:00)
[2017-03-26] MEDS: ATORVASTATIN 40 MG TAB PO SCH (08:58)
[2017-03-26] MEDS: busPIRone HCl 10 MG TAB PO SCH (08:59)
[2017-03-26] MEDS: CLOPIDOGREL 75 MG TAB PO SCH (08:59)
[2017-03-26] MEDS: HEPARIN SODIUM,PORCINE 5,000 UNIT/ML 1 ML VIAL SQ SCH (09:00)
[2017-03-26] MEDS ORDERED: LORATADINE 10 MG TAB PO SCH (09:00)
[2017-03-26] MEDS: EZETIMIBE 10 MG TAB PO SCH (09:00)
[2017-03-26] MEDS: RANOLAZINE 500 MG TAB.ER.12H PO SCH (09:01)
[2017-03-26] MEDS: POTASSIUM CHLORIDE ER 10 MEQ TAB.ER.PRT PO SCH (09:01)
[2017-03-26] MEDS: MONTELUKAST 10 MG TAB PO SCH (09:01)
[2017-03-26] MEDS: ALPRAZolam 0.25 MG TAB PO PRN (09:13)
[2017-03-26] MEDS: MULTIVITAMINS, THERA 1 EACH TAB PO SCH (11:16)
[2017-03-26 11:59] VITALS: BP 81/55; PULSE 59
--- NOTE | 2017-03-27 21:29 | DS ---
DATE OF ADMISSION: 03/23/2017 DATE OF DISCHARGE: 03/26/2017 DISCHARGE DIAGNOSES: 1. Coronary artery disease with restenosis of circumflex marginal. 2. Hypertension. 3. Previous myocardial infarction. 4. Previous 3-vessel bypass in 2011 followed by placement of 2 stents in 2013. 5. Hyperlipidemia. 6. Anxiety neurosis. 7. Allergic rhinitis. 8. Gastroesophageal reflux. 9. Hypokalemia. Flonase spray into the nose. This is a 51-year-old white female who was admitted with a history of shortness of breath and chest pain that had been going on for up to 2 weeks at that period of time. It was exertional in nature and non-exertional in nature. In the office she had a Holter monitor. She had troponins and she had EKGs, which were negative. Her pressure had dropped. We had decreased her Demadex and she had improved. On the day of admission she had 2 episodes of quick chest pain, basically precordial with minimal spread. At this time her vital signs are stable, with a blood pressure of 113/76, heart rate of 65, respiratory rate of 16 and temperature of 97.3. EYES: Pupils are equal, round and reactive to light and accommodation. ENT showed tympanic membranes. NECK: Supple with midline trachea. CHEST: Essentially clear to auscultation. HEART: Sinus rhythm. ABDOMEN: Soft, non-tender, with no organomegaly. LOWER EXTREMITIES: Within normal limits. At this time she is being discharged. Medications include: 1. Tylenol 650. 2. Albuterol updrafts. 3. Xanax 0.25 q.8. 4. Aspirin 81 daily. 5. Lipitor 40. 6. Pulmicort 0.5 updraft p.r.n. 7. Celexa 20 daily. 8. Coreg 3.125 b.i.d. 9. Plavix 75 daily. 10. Zetia 10 mg daily. 11. Claritin daily. 12. Vitamin daily. 13. Protonix 40 daily. 14. K-Dur 10 daily. 15. Ranexa 500 mg b.i.d. She is to rest at home. She will follow with me accordingly. She will see me in a week. Follow up with Cardiology according to their recommendation. [facility]
--- NOTE | 2017-03-27 22:31 | PN ---
Mrs. Zeng was admitted to the hospital with symptoms of unstable angina. She has a history of known CAD, prior bypass surgery and PCI. I performed a stress test which revealed apicolateral reversible defect which was more prominent. She was advised coronary angiography. That revealed in-stent restenosis of circumflex vessel. Her grafts to the circumflex and diagonal were occluded, RINCON to LAD was patent. I performed stenting of the circumflex vessel within the stented segment and placed a slightly large stent and dilated it with a 3.0 balloon. Excellent angiographic result was achieved. Post-procedure course was unremarkable. Her right groin is clean and dry with a good pulse. She is ambulating without symptoms. She has sharp pains which seem atypical. EKG revealed sinus rhythm; no acute changes. Laboratory data are unremarkable. Patient can be discharged today. I gave her specific discharge instructions regarding activity, diet, medications, and I will see her in the office on March 31 at 4 p.m. She will follow up closely with her primary care physician, Dr. Dru Mackey. At the time of discharge, she is asymptomatic, ambulating without symptoms. MADONNA
== END 2017-03-26 13:09 | disposition home or self-care (01) | DRG 247 ==
LOC: 3OBS 13:00 → 6SEL 03-25 10:22 → OBSVTOIN 03-25 15:00 → 6SEL 03-25 18:54
PROVIDERS: ADMIT Family Medicine; ATTEND Family Medicine
PROC: 4A12XM4 Monitoring of Cardiac Stress, External Approach (ICD-10-PCS; 2017-03-24)
PROC: 3E033HZ Introduction of Radioactive Substance into Peripheral Vein, Percutaneous Approach (ICD-10-PCS; 2017-03-24)
PROC: C22G1ZZ Tomographic (Tomo) Nuclear Medicine Imaging of Myocardium using Technetium 99m (Tc-99m) (ICD-10-PCS; 2017-03-24)
PROC: B2181ZZ Fluoroscopy of Left Internal Mammary Bypass Graft using Low Osmolar Contrast (ICD-10-PCS; 2017-03-25)
PROC: B2111ZZ Fluoroscopy of Multiple Coronary Arteries using Low Osmolar Contrast (ICD-10-PCS; 2017-03-25)
PROC: 4A023N7 Measurement of Cardiac Sampling and Pressure, Left Heart, Percutaneous Approach (ICD-10-PCS; 2017-03-25)
PROC: 027034Z Dilation of Coronary Artery, One Artery with Drug-eluting Intraluminal Device, Percutaneous Approach (ICD-10-PCS; principal; 2017-03-25 08:30)
PROC: B2151ZZ Fluoroscopy of Left Heart using Low Osmolar Contrast (ICD-10-PCS; 2017-03-25 08:30)
DX: T82.855A Stenosis of coronary artery stent, initial encounter (principal); I25.82 Chronic total occlusion of coronary artery; I95.9 Hypotension, unspecified; I25.110 Atherosclerotic heart disease of native coronary artery with unstable angina pectoris; E87.6 Hypokalemia; I10 Essential (primary) hypertension; E78.5 Hyperlipidemia, unspecified; I25.2 Old myocardial infarction; I49.3 Ventricular premature depolarization; J45.909 Unspecified asthma, uncomplicated; F32.9 Major depressive disorder, single episode, unspecified; F41.1 Generalized anxiety disorder; K21.9 Gastro-esophageal reflux disease without esophagitis; Z79.899 Other long term (current) drug therapy; Z79.82 Long term (current) use of aspirin; Z79.02 Long term (current) use of antithrombotics/antiplatelets; Z82.49 Family history of ischemic heart disease and other diseases of the circulatory system; Z87.81 Personal history of (healed) traumatic fracture; Z91.011 Allergy to milk products; Z91.018 Allergy to other foods; Z79.51 Long term (current) use of inhaled steroids; Z87.891 Personal history of nicotine dependence; Z95.1 Presence of aortocoronary bypass graft; Y83.1 Surgical operation with implant of artificial internal device as the cause of abnormal reaction of the patient, or of later complication, without mention of misadventure at the time of the procedure
CPT/HCPCS: 78452; 80048; 80053; 80061; 82550; 82553; 83735; 84484; 85025; 85379; 85610; 85730; 93017; 93306

== ENCOUNTER 2018-01-07 19:41 | Observation (INO) | payer BC, OTHER ==
[2018-01-07] MEDS ORDERED: HEPARIN SODIUM,PORCINE 5,000 UNIT/ML 1 ML VIAL IV STA (19:55)
[2018-01-07] MEDS ORDERED: NITROGLYCERIN OINT 1 INCH/GM PACKET TOPICAL STA (19:55)
--- NOTE | 2018-01-07 19:58 | ED ---
Chest Pain HPI - General Chief Complaint: Chest Pain Stated Complaint: CHEST PAIN Time Seen by Provider: 01/07/18 19:54 Source: patient, EMS, RN notes reviewed Mode of arrival: EMS Limitations: no limitations - History of Present Illness Initial Comments: This is a 52-year-old female with a history of coronary artery bypass and 3 stents who states she had the onset today of chest pain shortness of breath. She states this started after mowing about 4 L of grass states the pain is mid and low sternal initially was burning and later sharp in nature 02/16 severity EMS was called he was given aspirin and nitroglycerin and went from a 5 done with 3 she states is almost totally gone. She also states that this morning she had a blood pressure 90/60 home blood pressure medication. Currently no fevers chills nausea vomiting sweats or other symptoms she states she also had this morning some left neck pain no shortness of breath also. MD Complaint: chest pain - Related Data Home Medications Medication Instructions Recorded Confirmed ALPRAZolam [Xanax] 0.25 mg PO Q8HR PRN 06/09/15 01/07/18 Aspirin 81 mg PO DAILY 06/09/15 01/07/18 Atorvastatin [Lipitor] 80 mg PO HS 06/09/15 01/07/18 Fexofenadine HCl [Holly Allergy] 180 mg PO DAILY 06/09/15 01/07/18 Nitroglycerin Sl Tabs [Nitrostat] 0.4 mg SUBLINGUAL Q5M PRN 06/09/15 01/07/18 Albuterol Inhaler [Ventolin Hfa 2 puff INHALATION RT-Q6H PRN 03/23/17 01/07/18 Inhaler] Clopidogrel Bisulfate [Plavix] 75 mg PO DAILY 03/23/17 01/07/18 Multivitamins, Thera [Multivitamin 1 tab PO DAILY 03/23/17 01/07/18 (formulary)] Fluticasone Nasal [place] [Flonase 1 spray EA NOSTRIL DAILY PRN 05/08/17 01/07/18 Nasal [place]] Omeprazole 20 mg PO BID 05/08/17 01/07/18 Potassium Chloride [K-Tab ER] 8 meq PO DAILY 05/08/17 01/07/18 Citalopram Hydrobromide [CeleXA] 20 mg PO DAILY 01/07/18 01/07/18 Ezetimibe [Zetia] 10 mg PO DAILY 01/07/18 01/07/18 Allergies Allergy/AdvReac Type Severity Reaction Status Date / Time No Known Allergies Allergy Verified 01/07/18 20:20 Review of Systems ROS Statement: Those systems with pertinent positive or pertinent negative responses have been documented in the HPI. ROS Other: All systems not noted in ROS Statement are negative. EKG Findings - EKG Results: EKG: interpreted by KRAYN, sinus rhythm (Sinus rhythm rate of 67. Interval 138 QRS duration 84 QT since QTC of 460/439 poor R-wave progression.) Past Medical History Past Medical History: Coronary Artery Disease (CAD), GERD/Reflux, Sleep Apnea/ CPAP/BIPAP Additional Past Medical History / Comment(s): HAS A CPAP BUT DOES'NT USE IT, R wrist fracture with surgery, nasal fracture with surgical repair, allergic rhinitis, sinus problems, migraines. History of Any Multi-Drug Resistant Organisms: None Reported Past Surgical History: Coronary Bypass/CABG, Heart Catheterization, Heart Catheterization With Stent, Orthopedic Surgery Additional Past Surgical History / Comment(s): 2011 CABG- 3 vessel, PCI with stents 2012, ORIF R wrist, SEPTOPLASTY/turbinate reduction, nasal fracture repair, colonoscopy about 4 yrs ago. Past Anesthesia/Blood Transfusion Reactions: No Reported Reaction Date of Last Stent Placement:: 2013 Past Psychological History: Anxiety Smoking Status: Former smoker - Past Family History Father Family Medical History: Unable to Obtain Additional Family Medical History / Comment(s): Pt was 11 yrs old when her father in a MVA. She states cancer runs on her dad's side of the family. Mother Family Medical History: COPD, Coronary Artery Disease (CAD) Additional Family Medical History / Comment(s): Mother has had CABG. She was a smoker. She is on oxygen. General Exam - General Exam Comments Initial Comments: This is a well-developed well-nourished awake alert oriented 3 female Limitations: no limitations General appearance: alert, in no apparent distress Head exam: Present: atraumatic, normocephalic, normal inspection Eye exam: Present: normal appearance, PERRL, EOMI. Absent: scleral icterus, conjunctival injection, periorbital swelling ENT exam: Present: normal exam, mucous membranes moist Neck exam: Present: normal inspection. Absent: tenderness, meningismus, lymphadenopathy Respiratory exam: Present: normal lung sounds bilaterally, chest wall tenderness (Tenderness palpation over the lower sternal margin and xiphoid this is different than the pain she experienced earlier.). Absent: respiratory distress, wheezes, rales, rhonchi, stridor Cardiovascular Exam: Present: regular rate, normal rhythm, normal heart sounds. Absent: systolic murmur, diastolic murmur, rubs, gallop, clicks GI/Abdominal exam: Present: soft, normal bowel sounds. Absent: distended, tenderness, guarding, rebound, rigid Extremities exam: Present: normal inspection, full ROM, normal capillary refill. Absent: tenderness, pedal edema, joint swelling, calf tenderness Back exam: Present: normal inspection Neurological exam: Present: alert, oriented X3, CN II-XII intact Psychiatric exam: Present: normal affect, normal mood Skin exam: Present: warm, dry, intact, normal color. Absent: rash Course Vital Signs 01/07/18 01/07/18 01/07/18 19:44 21:07 21:42 Temperature 98.5 F 98.8 F Pulse Rate 73 60 64 Respiratory 16 16 18 Rate Blood Pressure 100/66 106/56 105/59 O2 Sat by Pulse 98 98 97 Oximetry 01/07/18 23:36 Temperature Pulse Rate 59 L Respiratory 16 Rate Blood Pressure 105/59 O2 Sat by Pulse 94 L Oximetry Chest Pain MDM - MDM I did review the imaging and report no acute findings. I did discuss the findings with the patient presentation is consistent with unstable angina presentation. Very similar to her prior episodes. I did discuss case with Dr. Mackey. Patient be admitted with cardiology consultation. Critical Care Time Critical Care Time: Yes Critical Care Time: 31 minutes of critical care time which includes initial presentation with history physical labs x-rays reevaluation patient response to therapy discuss with the patient regarding findings discussion with Dr. Mackey admission orders. Disposition Clinical Impression: Unstable angina pectoris, Chest pain Disposition: ADMITTED IP TO THIS HOSP Condition: Stable Referrals: Eloy Mackey MD [Primary Care Provider] - 1-2 days
[2018-01-07] MEDS ORDERED: HEPARIN SODIUM,PORCINE/D5W PMX 25,000 UNIT in DEXTROSE/WATER 1 500ML.BAG IV SCH (20:00)
[2018-01-07 20:20] LABS: INR 1.2 (<1.2); Partial Thromboplastin Time 22.9 sec (22.0-30.0); Prothrombin Time 11.1 sec (9.0-12.0)
[2018-01-07 20:21] LABS: ALT 32 U/L (9-52); AST 22 U/L (14-36); Albumin 3.7 g/dL (3.5-5.0); Alkaline Phosphatase 69 U/L (38-126); Amylase 40 U/L (30-110); Anion Gap 10 mmol/L; Blood Urea Nitrogen 7 mg/dL (7-17); Calcium 9.1 mg/dL (8.4-10.2); Carbon Dioxide 23 mmol/L (22-30); Chloride 108 mmol/L (98-107); Glucose 75 mg/dL (74-99); Lipase 104 U/L (23-300); Magnesium 1.4 mg/dL (1.6-2.3); Potassium 3.4 mmol/L (3.5-5.1); Sodium 141 mmol/L (137-145); Total Bilirubin 1.1 mg/dL (0.2-1.3); Total Protein 6.1 g/dL (6.3-8.2)
[2018-01-07 20:26] LABS: Basophils % (A) 0 %; Eosinophils # (A) 0.1 k/uL (0-0.7); Eosinophils % (A) 1 %; HCT 39.2 % (34.0-46.0); HGB 13.5 gm/dL (11.4-16.0); Lymphocytes # (A) 1.9 k/uL (1.0-4.8); Lymphocytes % (A) 23 %; MCH 30.2 pg (25.0-35.0); MCHC 34.5 g/dL (31.0-37.0); MCV 87.6 fL (80.0-100.0); Mean Platelet Volume 6.6; Monocytes # (A) 0.4 k/uL (0-1.0); Monocytes % (A) 4 %; Neutrophils # (A) 5.9 k/uL (1.3-7.7); Neutrophils % (A) 70 %; Platelet Count 217 k/uL (150-450); RBC 4.47 m/uL (3.80-5.40); RDW 12.7 % (11.5-15.5); WBC 8.4 k/uL (3.8-10.6)
[2018-01-07 20:32] LABS: Creatine Kinase 82 U/L (30-135)
[2018-01-07 20:45] LABS: Creatine Kinase MB 0.3 ng/mL (0.0-2.4); Troponin I <0.012 ng/mL (0.000-0.034)
--- NOTE | 2018-01-07 22:57 | XR ---
EXAMINATION: XR chest 2V DATE AND TIME: 01/07/2018 9:28 PM ORDERING PROVIDER: Ronen Dumont CLINICAL INDICATION: Chest Pain TECHNIQUE: PA and lateral COMPARISON: 05/08/2017 DESCRIPTION: The lungs are clear. The pleural spaces are negative. The cardiac silhouette is not enlarged. The mediastinal and pleural silhouettes are unremarkable. The skeletal structures are intact without focal findings. The soft tissues are unremarkable. IMPRESSION: NO ACUTE PROCESS.
[2018-01-08] MEDS ORDERED: NITROGLYCERIN SL TABS 0.4 MG TAB SUBLINGUAL PRN (00:22)
[2018-01-08] MEDS ORDERED: ALPRAZolam 0.25 MG TAB PO PRN (00:25)
[2018-01-08] MEDS ORDERED: ALBUTEROL NEBULIZED 2.5 MG/3 ML INHALATION PRN (00:25)
[2018-01-08] MEDS ORDERED: FLUTICASONE 50MCG/SPRAY NASAL 16GM EA NOSTRIL PRN (00:25)
[2018-01-08] MEDS ORDERED: MAGNESIUM SULFATE-D5W PMX 1 GM in DEXTROSE/WATER 1 100ML.BAG IVPB ONE (00:26)
[2018-01-08] MEDS ORDERED: POTASSIUM CHLORIDE 20 MEQ in WATER FOR INJECTION 1 100ML.BAG IVPB STA (00:26)
--- NOTE | 2018-01-08 00:27 | ED ---
Medical Decision Making - Lab Data Result diagrams: 01/07/18 19:45 01/07/18 19:45 Lab Results 01/07/18 01/07/18 01/07/18 Range/Units 19:45 19:45 19:45 WBC 8.4 (3.8-10.6) k/uL RBC 4.47 (3.80-5.40) m/uL Hgb 13.5 (11.4-16.0) gm/dL Hct 39.2 (34.0-46.0) % MCV 87.6 (80.0-100.0) fL MCH 30.2 (25.0-35.0) pg MCHC 34.5 (31.0-37.0) g/dL RDW 12.7 (11.5-15.5) % Plt Count 217 (150-450) k/uL Neutrophils % 70 % Lymphocytes % 23 % Monocytes % 4 % Eosinophils % 1 % Basophils % 0 % Neutrophils # 5.9 (1.3-7.7) k/uL Lymphocytes # 1.9 (1.0-4.8) k/uL Monocytes # 0.4 (0-1.0) k/uL Eosinophils # 0.1 (0-0.7) k/uL Basophils # 0.0 (0-0.2) k/uL PT (9.0-12.0) sec INR (<1.2) APTT (22.0-30.0) sec Sodium 141 (137-145) mmol/L Potassium 3.4 L (3.5-5.1) mmol/L Chloride 108 H (98-107) mmol/L Carbon Dioxide 23 (22-30) mmol/L Anion Gap 10 mmol/L BUN 7 (7-17) mg/dL Creatinine 0.60 (0.52-1.04) mg/dL Est GFR (CKD-EPI)AfAm >90 (>60 ml/min/1.73 sqM) Est GFR (CKD-EPI)NonAf >90 (>60 ml/min/1.73 sqM) Glucose 75 (74-99) mg/dL Calcium 9.1 (8.4-10.2) mg/dL Magnesium 1.4 L (1.6-2.3) mg/dL Total Bilirubin 1.1 (0.2-1.3) mg/dL AST 22 (14-36) U/L ALT 32 (9-52) U/L Alkaline Phosphatase 69 (38-126) U/L Total Creatine Kinase 82 (30-135) U/L CK-MB (CK-2) 0.3 (0.0-2.4) ng/mL CK-MB (CK-2) Rel Index 0.4 Troponin I <0.012 (0.000-0.034) ng/mL Total Protein 6.1 L (6.3-8.2) g/dL Albumin 3.7 (3.5-5.0) g/dL Amylase 40 (30-110) U/L Lipase 104 (23-300) U/L 01/07/18 Range/Units 19:45 WBC (3.8-10.6) k/uL RBC (3.80-5.40) m/uL Hgb (11.4-16.0) gm/dL Hct (34.0-46.0) % MCV (80.0-100.0) fL MCH (25.0-35.0) pg MCHC (31.0-37.0) g/dL RDW (11.5-15.5) % Plt Count (150-450) k/uL Neutrophils % % Lymphocytes % % Monocytes % % Eosinophils % % Basophils % % Neutrophils # (1.3-7.7) k/uL Lymphocytes # (1.0-4.8) k/uL Monocytes # (0-1.0) k/uL Eosinophils # (0-0.7) k/uL Basophils # (0-0.2) k/uL PT 11.1 (9.0-12.0) sec INR 1.2 H (<1.2) APTT 22.9 (22.0-30.0) sec Sodium (137-145) mmol/L Potassium (3.5-5.1) mmol/L Chloride (98-107) mmol/L Carbon Dioxide (22-30) mmol/L Anion Gap mmol/L BUN (7-17) mg/dL Creatinine (0.52-1.04) mg/dL Est GFR (CKD-EPI)AfAm (>60 ml/min/1.73 sqM) Est GFR (CKD-EPI)NonAf (>60 ml/min/1.73 sqM) Glucose (74-99) mg/dL Calcium (8.4-10.2) mg/dL Magnesium (1.6-2.3) mg/dL Total Bilirubin (0.2-1.3) mg/dL AST (14-36) U/L ALT (9-52) U/L Alkaline Phosphatase (38-126) U/L Total Creatine Kinase (30-135) U/L CK-MB (CK-2) (0.0-2.4) ng/mL CK-MB (CK-2) Rel Index Troponin I (0.000-0.034) ng/mL Total Protein (6.3-8.2) g/dL Albumin (3.5-5.0) g/dL Amylase (30-110) U/L Lipase (23-300) U/L Disposition Clinical Impression: Unstable angina pectoris, Chest pain, Hypokalemia, Hypomagnesemia Disposition: ADMITTED IP TO THIS [facility] Condition: Stable Referrals: Eloy Mackey MD [Primary Care Provider] - 1-2 days
[2018-01-08 02:24] VITALS: BMI 21.6
[2018-01-08 02:50] LABS: Creatine Kinase 83 U/L (30-135); Magnesium 1.6 mg/dL (1.6-2.3); Potassium 4.6 mmol/L (3.5-5.1)
[2018-01-08 03:02] LABS: Creatine Kinase MB 0.4 ng/mL (0.0-2.4); Troponin I <0.012 ng/mL (0.000-0.034)
[2018-01-08] MEDS ORDERED: NITROGLYCERIN OINT 1 INCH/GM PACKET TOPICAL SCH (06:00)
[2018-01-08] MEDS: ACETAMINOPHEN TAB 325 MG TAB PO PRN ×4 (06:32→19:41)
[2018-01-08] MEDS: SODIUM CHLORIDE 0.9% 1,000 ML IV SCH (07:03)
--- NOTE | 2018-01-08 07:37 | P.CRDCN ---
History of Present Illness Consult reason: chest pain History of present illness: 52-year-old female was cutting grass and realize she had a bruise on the left arm and was worried about an anaphylactic reaction and to Benadryl. Subsequently she started developing chest discomfort. She took her blood pressure and found that it was in the mid 80s systolic. Pulse rate was in the 130s. ECG is normal Cardiac enzymes are normal She definitely has a bruise in the left arm and states that she did not realize that she had injured herself Known coronary artery disease status post coronary artery bypass grafting Diagnoses artery disease which is being treated medically Patient of Dr. Avendaño Suggest Will discuss with Dr. Avendaño 2-D echo and Doppler study DC heparin DC Nitropaste and repeat ECG if she has chest pain Please see full dictation by nurse practitioner Past Medical History Past Medical History: Coronary Artery Disease (CAD), GERD/Reflux, Sleep Apnea/ CPAP/BIPAP Additional Past Medical History / Comment(s): HAS A CPAP BUT DOES'NT USE IT, R wrist fracture with surgery, nasal fracture with surgical repair, allergic rhinitis, sinus problems, migraines. History of Any Multi-Drug Resistant Organisms: None Reported Past Surgical History: Coronary Bypass/CABG, Heart Catheterization, Heart Catheterization With Stent, Orthopedic Surgery Additional Past Surgical History / Comment(s): 2011 CABG- 3 vessel, PCI with stents x 4 last Mar 2017, ORIF R wrist, SEPTOPLASTY/turbinate reduction, nasal fracture repair, colonoscopy about 4 yrs ago. Past Anesthesia/Blood Transfusion Reactions: No Reported Reaction Date of Last Stent Placement:: 2016 Past Psychological History: Anxiety Additional Psychological History / Comment(s): Pt resides with her spouse in single level home that has 2 front steps. pt is independant. no home care services. has cpap machine but does'nt use it. 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 Smoking Status: Former smoker Past Alcohol Use History: None Reported, Occasional Additional Past Alcohol Use History / Comment(s): Pt started smoking in 1981 and quit in 2011. She was an on and off smoker during that time and averaged 3 cigarettes a day. Past Drug Use History: None Reported - Past Family History Father Family Medical History: Unable to Obtain Additional Family Medical History / Comment(s): Pt was 11 yrs old when her father in a MVA. She states cancer runs on her dad's side of the family. Mother Family Medical History: COPD, Coronary Artery Disease (CAD) Additional Family Medical History / Comment(s): Mother has had CABG. She was a smoker. She is on oxygen. Medications and Allergies Home Medications Medication Instructions Recorded Confirmed Type ALPRAZolam [Xanax] 0.25 mg PO Q8HR PRN 06/09/15 01/07/18 History Aspirin 81 mg PO DAILY 06/09/15 01/07/18 History Atorvastatin [Lipitor] 80 mg PO HS 06/09/15 01/07/18 History Fexofenadine HCl [Holly Allergy] 180 mg PO DAILY 06/09/15 01/07/18 History Nitroglycerin Sl Tabs [Nitrostat] 0.4 mg SUBLINGUAL Q5M PRN 06/09/15 01/07/18 History Albuterol Inhaler [Ventolin Hfa 2 puff INHALATION RT-Q6H PRN 03/23/17 01/07/18 History Inhaler] Clopidogrel Bisulfate [Plavix] 75 mg PO DAILY 03/23/17 01/07/18 History Multivitamins, Thera [Multivitamin 1 tab PO DAILY 03/23/17 01/07/18 History (formulary)] Fluticasone Nasal [place] [Flonase 1 spray EA NOSTRIL DAILY PRN 05/08/17 01/07/18 History Nasal [place]] Omeprazole 20 mg PO BID 05/08/17 01/07/18 History Potassium Chloride [K-Tab ER] 8 meq PO DAILY 05/08/17 01/07/18 History Citalopram Hydrobromide [CeleXA] 20 mg PO DAILY 01/07/18 01/07/18 History Ezetimibe [Zetia] 10 mg PO DAILY 01/07/18 01/07/18 History Allergies Allergy/AdvReac Type Severity Reaction Status Date / Time No Known Allergies Allergy Verified 01/07/18 20:20 Physical Exam Vitals: Vital Signs Temp Pulse Pulse Resp BP BP Pulse Ox 01/08/18 06:27 100/55 01/08/18 04:00 98.1 F 62 16 91/49 95 01/08/18 00:54 53 L 16 93/51 96 01/07/18 23:36 59 L 16 105/59 94 L 01/07/18 21:42 98.8 F 64 18 105/59 97 01/07/18 21:07 60 16 106/56 98 01/07/18 19:44 98.5 F 73 16 100/66 98 Intake and Output 01/07/18 01/08/18 01/08/18 22:59 06:59 14:59 Intake Total 103.511 Balance 103.511 Intake: Intake, IV Titration 103.511 Amount Heparin Sodium,Porcine/ 103.511 D5w Pmx 25,000 unit In Dextrose/Water 1 500ml. bag @ 12 UNITS/KG/HR 13. 71 mls/hr IV .Q24H COUNTS INCLUDE 234 BEDS AT THE [facility] Rx #:[id number] Other: # Voids 2 Weight 57.153 kg 57.153 kg Results 01/07/18 19:45 01/08/18 02:09 Cardiac Enzymes 01/07/18 01/07/18 01/08/18 Range/Units 19:45 19:45 02:09 AST 22 (14-36) U/L CK-MB (CK-2) 0.3 0.4 (0.0-2.4) ng/mL Troponin I <0.012 <0.012 (0.000-0.034) ng/mL Coagulation 01/07/18 01/08/18 Range/Units 19:45 02:09 PT 11.1 (9.0-12.0) sec APTT 22.9 42.7 H (22.0-30.0) sec CBC 01/07/18 Range/Units 19:45 WBC 8.4 (3.8-10.6) k/uL RBC 4.47 (3.80-5.40) m/uL Hgb 13.5 (11.4-16.0) gm/dL Hct 39.2 (34.0-46.0) % Plt Count 217 (150-450) k/uL Comprehensive Metabolic Panel 01/07/18 01/08/18 Range/Units 19:45 02:09 Sodium 141 (137-145) mmol/L Potassium 3.4 L 4.6 (3.5-5.1) mmol/L Chloride 108 H (98-107) mmol/L Carbon Dioxide 23 (22-30) mmol/L BUN 7 (7-17) mg/dL Creatinine 0.60 (0.52-1.04) mg/dL Glucose 75 (74-99) mg/dL Calcium 9.1 (8.4-10.2) mg/dL AST 22 (14-36) U/L ALT 32 (9-52) U/L Alkaline Phosphatase 69 (38-126) U/L Total Protein 6.1 L (6.3-8.2) g/dL Albumin 3.7 (3.5-5.0) g/dL Current Medications Generic Name Dose Route Start Last Admin Trade Name Freq PRN Reason Stop Dose Admin Acetaminophen 650 mg 01/08/18 06:24 01/08/18 06:32 Tylenol Tab PO 650 mg Q4HR PRN Administration Fever and/ or Pain Albuterol Sulfate 2.5 mg 01/08/18 00:25 Ventolin Nebulized INHALATION RT-Q6H PRN Dyspnea Alprazolam 0.25 mg 01/08/18 00:25 Xanax PO Q8HR PRN Anxiety Aspirin 325 mg 01/09/18 09:00 Aspirin PO DAILY COUNTS INCLUDE 234 BEDS AT THE [facility] Atorvastatin Calcium 80 mg 01/08/18 21:00 Lipitor PO HS COUNTS INCLUDE 234 BEDS AT THE [facility] Citalopram Hydrobromide 20 mg 01/08/18 09:00 Celexa PO DAILY COUNTS INCLUDE 234 BEDS AT THE [facility] Clopidogrel Bisulfate 75 mg 01/08/18 09:00 Plavix PO DAILY COUNTS INCLUDE 234 BEDS AT THE [facility] Ezetimibe 10 mg 01/08/18 09:00 Zetia PO DAILY COUNTS INCLUDE 234 BEDS AT THE [facility] Fluticasone Propionate 1 spray 01/08/18 00:25 Flonase Nasal [place] EA NOSTRIL DAILY PRN Allergy Symptoms Heparin Sodium/Dextrose 25,000 500 mls @ 13.71 mls/hr 01/07/18 20:00 04:41 unit/ IV Solution IV 14.08 units/kg/hr .Q24H [facility] 16.1 mls/hr Protocol Titration 12 UNITS/KG/HR Sodium Chloride 1,000 mls @ 20 mls/hr 01/08/18 00:30 01/08/18 07:03 Saline 0.9% IV Not Given .Q24H COUNTS INCLUDE 234 BEDS AT THE [facility] Loratadine 10 mg 01/08/18 09:00 Claritin PO DAILY COUNTS INCLUDE 234 BEDS AT THE [facility] Multivitamins 1 each 01/08/18 09:00 Theragran PO DAILY COUNTS INCLUDE 234 BEDS AT THE [facility] Nitroglycerin 1 inch 01/08/18 06:00 01/08/18 06:26 Nitro-Bid Oint TOPICAL Not Given Q6HR COUNTS INCLUDE 234 BEDS AT THE [facility] Nitroglycerin 0.4 mg 01/08/18 00:22 01/08/18 07:05 Nitrostat SUBLINGUAL 0.4 mg Q5M PRN Administration Chest Pain Pantoprazole Sodium 40 mg 01/08/18 07:30 Protonix PO AC-BID [facility] Potassium Chloride 10 meq 01/08/18 09:00 K-Dur 10 PO DAILY [facility] Intake and Output 01/07/18 01/08/18 01/08/18 22:59 06:59 14:59 Intake Total 103.511 Balance 103.511 Intake: Intake, IV Titration 103.511 Amount Heparin Sodium,Porcine/ 103.511 D5w Pmx 25,000 unit In Dextrose/Water 1 500ml. bag @ 12 UNITS/KG/HR 13. 71 mls/hr IV .Q24H [facility] Rx #:[id number] Other: # Voids 2 Weight 57.153 kg 57.153 kg 01/07/18 19:45 01/08/18 02:09
[2018-01-08] MEDS ORDERED: CITALOPRAM HYDROBROMIDE 20 MG TAB PO SCH ×2 (09:00→21:00)
[2018-01-08] MEDS ORDERED: ASPIRIN 81 MG PO SCH (09:00)
[2018-01-08 10:07] LABS: Creatine Kinase 76 U/L (30-135)
[2018-01-08 10:19] LABS: Creatine Kinase MB 0.4 ng/mL (0.0-2.4); Troponin I <0.012 ng/mL (0.000-0.034)
--- NOTE | 2018-01-08 12:02 | P.HPIM ---
History of Present Illness H&P Date: 01/08/18 Chief Complaint: Chest pain 52-year-old female who presented to the emergency room with a chief complaint of chest pain. Patient reports she was mowing a large amount of grass yesterday and subsequently developed chest pain. She also reports that she noticed some bruising on left arm and she thought she may be having an anaphylactic reaction of an unknown source. The patient reports that she took Benadryl at home for this. She took her blood pressure at home and it was found to be in the 90s. She reports her chest pain as heaviness, pressure, and squeezing sensation. She states "It feels like someone put a 16 pound weight on my chest". She does report some associated shortness of the breath with the chest pain, although at the time of examination she is not having shortness of breath. She does report some nausea yesterday which she believes to be from lack of water intake and being outside in the hot, humid weather. Denies emesis or dry heaves. Denies fever or chills. Denies dizziness or lightheadedness.The patient has an extensive cardiac history and she called EMS and was transferred to the hospital for further evaluation. She received nitroglycerin and aspirin in the ambulance which she states relieved her chest pain. The patient has a history of coronary artery disease with multiple stent placements (x4). She has underwent CABG x 3 vessels in 2012. She also has a history of gastroesophageal reflux disease and sleep apnea. The patient states she has a CPAP but does not use it regularly. She has a history of anxiety. She is a former cigarette smoker. She started smoking in 1981 and states she quit in 2011. Chest x-ray: Negative for acute process. Laboratory data: WBC 8.4. Hemoglobin 13.5. Platelet count 217. Sodium 141. Potassium 3.4. Chloride 108. Carbon oxide 23. BUN 7. Creatinine 0.60. Glucose 75. Magnesium 1.4. LFTs and pancreatic enzymes within normal limits. Troponin: Negative 3. The patient was admitted to the hospital under the care of Dr. Mackey to the observation unit. Consultations were placed to cardiology. Review of Systems Those systems with pertinent positive or pertinent negative responses have been documented in the HPI Past Medical History Past Medical History: Coronary Artery Disease (CAD), GERD/Reflux, Sleep Apnea/ CPAP/BIPAP Additional Past Medical History / Comment(s): HAS A CPAP BUT DOES'NT USE IT, R wrist fracture with surgery, nasal fracture with surgical repair, allergic rhinitis, sinus problems, migraines. History of Any Multi-Drug Resistant Organisms: None Reported Past Surgical History: Coronary Bypass/CABG, Heart Catheterization, Heart Catheterization With Stent, Orthopedic Surgery Additional Past Surgical History / Comment(s): 2011 CABG- 3 vessel, PCI with stents x 4 last Mar 2017, ORIF R wrist, SEPTOPLASTY/turbinate reduction, nasal fracture repair, colonoscopy about 4 yrs ago. Past Anesthesia/Blood Transfusion Reactions: No Reported Reaction Date of Last Stent Placement:: 2016 Past Psychological History: Anxiety Additional Psychological History / Comment(s): Pt resides with her spouse in single level home that has 2 front steps. pt is independant. no home care services. has cpap machine but does'nt use it. 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 Smoking Status: Former smoker Past Alcohol Use History: None Reported, Occasional Additional Past Alcohol Use History / Comment(s): Pt started smoking in 1981 and quit in 2011. She was an on and off smoker during that time and averaged 3 cigarettes a day. Past Drug Use History: None Reported - Past Family History Father Family Medical History: Unable to Obtain Additional Family Medical History / Comment(s): Pt was 11 yrs old when her father in a MVA. She states cancer runs on her dad's side of the family. Mother Family Medical History: COPD, Coronary Artery Disease (CAD) Additional Family Medical History / Comment(s): Mother has had CABG. She was a smoker. She is on oxygen. Medications and Allergies Home Medications Medication Instructions Recorded Confirmed Type ALPRAZolam [Xanax] 0.25 mg PO Q8HR PRN 06/09/15 01/07/18 History Aspirin 81 mg PO DAILY 06/09/15 01/07/18 History Atorvastatin [Lipitor] 80 mg PO HS 06/09/15 01/07/18 History Fexofenadine HCl [Holly Allergy] 180 mg PO DAILY 06/09/15 01/07/18 History Nitroglycerin Sl Tabs [Nitrostat] 0.4 mg SUBLINGUAL Q5M PRN 06/09/15 01/07/18 History Albuterol Inhaler [Ventolin Hfa 2 puff INHALATION RT-Q6H PRN 03/23/17 01/07/18 History Inhaler] Clopidogrel Bisulfate [Plavix] 75 mg PO DAILY 03/23/17 01/07/18 History Multivitamins, Thera [Multivitamin 1 tab PO DAILY 03/23/17 01/07/18 History (formulary)] Fluticasone Nasal [place] [Flonase 1 spray EA NOSTRIL DAILY PRN 05/08/17 01/07/18 History Nasal [place]] Omeprazole 20 mg PO BID 05/08/17 01/07/18 History Potassium Chloride [K-Tab ER] 8 meq PO DAILY 05/08/17 01/07/18 History Citalopram Hydrobromide [CeleXA] 20 mg PO DAILY 01/07/18 01/07/18 History Ezetimibe [Zetia] 10 mg PO DAILY 01/07/18 01/07/18 History Allergies Allergy/AdvReac Type Severity Reaction Status Date / Time No Known Allergies Allergy Verified 01/07/18 20:20 Physical Exam Vitals: Vital Signs Temp Pulse Pulse Pulse Resp BP BP 01/08/18 08:00 97.9 F 57 L 16 93/66 01/08/18 06:27 100/55 01/08/18 04:00 98.1 F 62 16 91/49 01/08/18 00:54 53 L 16 93/51 01/07/18 23:36 59 L 16 105/59 01/07/18 21:42 98.8 F 64 18 105/59 01/07/18 21:07 60 16 106/56 01/07/18 19:44 98.5 F 73 16 100/66 Pulse Ox 01/08/18 08:00 96 01/08/18 06:27 01/08/18 04:00 95 01/08/18 00:54 96 01/07/18 23:36 94 L 01/07/18 21:42 97 01/07/18 21:07 98 01/07/18 19:44 98 Intake and Output 01/07/18 01/08/18 01/08/18 22:59 06:59 14:59 Intake Total 103.511 Balance 103.511 Intake: Intake, IV Titration 103.511 Amount Heparin Sodium,Porcine/ 103.511 D5w Pmx 25,000 unit In Dextrose/Water 1 500ml. bag @ 12 UNITS/KG/HR 13. 71 mls/hr IV .Q24H [facility] Rx #:[id number] Other: Voiding Method Toilet # Voids 2 Weight 57.153 kg 57.153 kg - Constitutional General appearance: average body habitus, cooperative, no acute distress - EENT Eyes: EOMI, PERRLA, normal appearance ENT: hearing grossly normal, normal oropharynx, no pharyngeal erythema, no thrush - Neck Neck: normal ROM, no rigidity, no stridor - Respiratory Respiratory: bilateral: CTA, negative: rales, rhonchi, wheezing - Cardiovascular Rhythm: regular Heart sounds: normal: S1, S2 Abnormal Heart Sounds: no systolic murmur, no diastolic murmur - Gastrointestinal General gastrointestinal: no distended, normal bowel sounds, no organomegaly, soft, no tenderness - Integumentary Ecchymosis to left upper extremity Integumentary: no cellulitis, no cyanotic, no flushed, no jaundiced, normal - Neurologic Neurologic: CNII-XII intact - Musculoskeletal Musculoskeletal: gait normal, strength equal bilaterally - Psychiatric Psychiatric: A&O x's 3, appropriate affect, intact judgment & insight Results CBC & Chem 7: 01/07/18 19:45 01/08/18 02:09 Labs: Abnormal Lab Results - Last 24 Hours (Table) 01/07/18 01/07/18 01/08/18 Range/Units 19:45 19:45 02:09 INR 1.2 H (<1.2) APTT 42.7 H (22.0-30.0) sec Potassium 3.4 L (3.5-5.1) mmol/L Chloride 108 H (98-107) mmol/L Magnesium 1.4 L (1.6-2.3) mg/dL Total Protein 6.1 L (6.3-8.2) g/dL Thrombosis Risk Factor Assmnt - Choose All That Apply Each Factor Represents 1 point: Age 41-60 years Thrombosis Risk Factor Assessment Total Risk Factor Score: 1 Thrombosis Risk Factor Assessment Level: Low Risk Assessment and Plan Plan: ASSESSMENT: Chest pain, present on admission, troponin negative x 3, cardiology following Coronary artery disease with previous stenting 4 History of coronary artery bypass graft 3 vessels in 2012 History of sleep apnea, patient does not wear CPAP regularly Gastroesophageal reflux disease History of nicotine dependence, in remission, patient is a former cigarette smoker Generalized anxiety disorder Hypokalemia, improved with supplementation Hypomagnesemia, improved with supplementation PLAN: Cardiology on consult. Appreciate recommendations and input Await results of echocardiogram Home meds as appropriate Monitor labs Further recommendations pending patient's course Anticipate discharge home tomorrow if patient remains stable Nurse practitioner note has been reviewed by physician. Signing provider agrees with the documented findings, assessment, and plan of care.
--- NOTE | 2018-01-08 12:28 | ECHOF ---
Referral Reason:cp MEASUREMENTS -------- HEIGHT: 162.6 cm WEIGHT: 57.2 kg BP: 100/55 RVIDd: 2.5 cm (< 3.3) IVSd: 0.9 cm (0.6 - 1.1) LVIDd: 4.9 cm (3.9 - 5.3) LVPWd: 0.8 cm (0.6 - 1.1) IVSs: 1.3 cm LVIDs: 2.8 cm LVPWs: 1.4 cm LA Diam: 3.0 cm (2.7 - 3.8) LAESV Index (A-L): 27.27 ml/m Ao Diam: 3.2 cm (2.0 - 3.7) AV Cusp: 2.1 cm (1.5 - 2.6) MV EXCURSION: 13.601 mm (> 18.000) MV EF SLOPE: 82 mm/s (70 - 150) EPSS: 0.9 cm MV E Alfredo: 0.93 m/s MV DecT: 199 ms MV A Alfredo: 0.78 m/s MV E/A Ratio: 1.19 RAP: 5.00 mmHg RVSP: 23.88 mmHg FINDINGS -------- Sinus rhythm. This was a technically good study. The left ventricular size is normal. Left ventricular wall thickness is normal. Overall left vent ricular systolic function is mildly impaired with, an EF between 45 - 50 %. Mid anterior LV wall mo tion is hypokinetic. The right ventricle is normal in size. Normal LA size by volume 22+/-6 ml/m2. The right atrium is normal in size. There is mild aortic valve sclerosis. The mitral valve leaflets are mildly thickened. Moderate mitral regurgitation is present. Mild tricuspid regurgitation present. Right ventricular systolic pressure is normal at < 35 mmHg. Trace/mild (physiologic) pulmonic regurgitation. The aortic root size is normal. Normal inferior vena cava with normal inspiratory collapse consistent with estimated right atrial pre ssure of 5 mmHg. There is no pericardial effusion. CONCLUSIONS -------- 1. Sinus rhythm. 2. This was a technically good study. 3. The left ventricular size is normal. 4. Left ventricular wall thickness is normal. 5. Overall left ventricular systolic function is mildly impaired with, an EF between 45 - 50 %. 6. Mid anterior LV wall motion is hypokinetic. 7. The right ventricle is normal in size. 8. Normal LA size by volume 22+/-6 ml/m2. 9. The right atrium is normal in size. 10. There is mild aortic valve sclerosis. 11. The mitral valve leaflets are mildly thickened. 12. Moderate mitral regurgitation is present. 13. Mild tricuspid regurgitation present. 14. Right ventricular systolic pressure is normal at < 35 mmHg. 15. Trace/mild (physiologic) pulmonic regurgitation. 16. The aortic root size is normal. 17. Normal inferior vena cava with normal inspiratory collapse consistent with estimated right atrial pressure of 5 mmHg. 18. There is no pericardial effusion. [employer]: Carli Linton RDCS
[2018-01-08] MEDS: CLOPIDOGREL 75 MG TAB PO SCH (14:09)
[2018-01-08] MEDS: EZETIMIBE 10 MG TAB PO SCH (14:09)
[2018-01-08] MEDS: POTASSIUM CHLORIDE ER 10 MEQ TAB.ER.PRT PO SCH (14:09)
[2018-01-08] MEDS: MULTIVITAMINS, THERA 1 EACH TAB PO SCH (14:09)
[2018-01-08] MEDS: PANTOPRAZOLE 40 MG TABLET PO SCH ×2 (14:09→19:41)
[2018-01-08] MEDS: LORATADINE 10 MG TAB PO SCH (14:09)
--- NOTE | 2018-01-08 14:15 | P.CRDCN ---
History of Present Illness History of present illness: Mrs Gibbons is a pleasant 52-year-old female past medical history significant for coronary artery disease s/p bypass grafting with recent angioplasty of previously stented circumflex artery with patent RINCON-LAD, closed vein grafts and unga RCA with 30-40% non-critical disease and totally occluded mid LAD. She also has obstructive sleep apnea, gastroesohageal reflux disease and is a former smoker. She follows with Dr. DANIELLE Avendaño in the office. She was cutting her lawn yesterday uneventfully, when she came in the house she noticed a large bruise on the left upper arm with swelling. She immediately became alarmed because she is allergic to bumble bees and thought she may have been stung. She then started to feel short of breath and tightening in her chest. She took a benadryl and checked her blood pressure which was 89 systolic. EMS was called and she was getting nitroglycerin and aspirin. Her chest pain has since resolved and she is resting comfortably in bed. EKG shows sinus mechanism with no acute ST or T-wave abnormalities. Chest xray negative for an acute cardiopulmonary process. Laboratory data reviewed, hemoglobin 13.5, platelets 217, sodium 141, potassium 3. 4 repeat 4.6, creatinine 0.6, magnesium 1. 4 repeat 1.6, cardiac enzymes negative 3. Current cardiac medications include aspirin 81 mg daily, atorvastatin 80 mg daily, plavix 75 mg daily, zetia 10 mg daily and potassium supplementation. Echocardiogram obtained on this admission reveals mildly impaired LV systolic function 45-50%, mild anterior wall hypokinesia, mild aortic valve sclerosis, moderate MR, mild TR and no pulmonary hypertension. Review of Systems At the time of my exam: CONSTITUTIONAL: Denies fever. Denies chills. EYES: Denies blurred vision. Denies vision changes. Denies eye pain. EARS, NOSE, MOUTH & THROAT: Denies headache. Denies sore throat. Denies ear pain. CARDIOVASCULAR: Denies chest pain. Denies shortness of breath. Denies orthopnea. Denies PND. Denies palpitations. RESPIRATORY: Denies cough. GASTROINTESTINAL: Denies abdominal pain. Denies diarrhea. Denies constipation. Denies nausea. Denies vomiting. MUSCULOSKELETAL: Complains of left arm discomfort. INTEGUMENTARY: Denies pruitis. Denies rash. NEUROLOGIC: Denies numbness. Denies tingling. Denies weakness. PSYCHIATRIC: Denies anxiety. Denies depression. ENDOCRINE: Denies fatigue. Denies weight change. Denies polydipsia. Denies polyurina. GENITOURINARY: Denies burning, hematuria or urgency with micturation. HEMATOLOGIC: Denies history of anemia. Denies bleeding. Past Medical History Past Medical History: Coronary Artery Disease (CAD), GERD/Reflux, Sleep Apnea/ CPAP/BIPAP Additional Past Medical History / Comment(s): HAS A CPAP BUT DOES'NT USE IT, R wrist fracture with surgery, nasal fracture with surgical repair, allergic rhinitis, sinus problems, migraines. History of Any Multi-Drug Resistant Organisms: None Reported Past Surgical History: Coronary Bypass/CABG, Heart Catheterization, Heart Catheterization With Stent, Orthopedic Surgery Additional Past Surgical History / Comment(s): 2011 CABG- 3 vessel, PCI with stents x 4 last Mar 2017, ORIF R wrist, SEPTOPLASTY/turbinate reduction, nasal fracture repair, colonoscopy about 4 yrs ago. Past Anesthesia/Blood Transfusion Reactions: No Reported Reaction Date of Last Stent Placement:: 2016 Past Psychological History: Anxiety Additional Psychological History / Comment(s): Pt resides with her spouse in single level home that has 2 front steps. pt is independant. no home care services. has cpap machine but does'nt use it. 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 Smoking Status: Former smoker Past Alcohol Use History: None Reported, Occasional Additional Past Alcohol Use History / Comment(s): Pt started smoking in 1981 and quit in 2011. She was an on and off smoker during that time and averaged 3 cigarettes a day. Past Drug Use History: None Reported - Past Family History Father Family Medical History: Unable to Obtain Additional Family Medical History / Comment(s): Pt was 11 yrs old when her father in a MVA. She states cancer runs on her dad's side of the family. Mother Family Medical History: COPD, Coronary Artery Disease (CAD) Additional Family Medical History / Comment(s): Mother has had CABG. She was a smoker. She is on oxygen. Medications and Allergies Home Medications Medication Instructions Recorded Confirmed Type ALPRAZolam [Xanax] 0.25 mg PO Q8HR PRN 06/09/15 01/07/18 History Aspirin 81 mg PO DAILY 06/09/15 01/07/18 History Atorvastatin [Lipitor] 80 mg PO HS 06/09/15 01/07/18 History Fexofenadine HCl [Holly Allergy] 180 mg PO DAILY 06/09/15 01/07/18 History Nitroglycerin Sl Tabs [Nitrostat] 0.4 mg SUBLINGUAL Q5M PRN 06/09/15 01/07/18 History Albuterol Inhaler [Ventolin Hfa 2 puff INHALATION RT-Q6H PRN 03/23/17 01/07/18 History Inhaler] Clopidogrel Bisulfate [Plavix] 75 mg PO DAILY 03/23/17 01/07/18 History Multivitamins, Thera [Multivitamin 1 tab PO DAILY 03/23/17 01/07/18 History (formulary)] Fluticasone Nasal Wever [Flonase 1 spray EA NOSTRIL DAILY PRN 05/08/17 01/07/18 History Nasal Wever] Omeprazole 20 mg PO BID 05/08/17 01/07/18 History Potassium Chloride [K-Tab ER] 8 meq PO DAILY 05/08/17 01/07/18 History Citalopram Hydrobromide [CeleXA] 20 mg PO DAILY 01/07/18 01/07/18 History Ezetimibe [Zetia] 10 mg PO DAILY 01/07/18 01/07/18 History Allergies Allergy/AdvReac Type Severity Reaction Status Date / Time No Known Allergies Allergy Verified 01/07/18 20:20 Physical Exam Vitals: Vital Signs Temp Pulse Pulse Pulse Resp BP BP 01/08/18 12:00 98.0 F 61 16 122/72 01/08/18 08:00 97.9 F 57 L 16 93/66 01/08/18 06:27 100/55 01/08/18 04:00 98.1 F 62 16 91/49 01/08/18 00:54 53 L 16 93/51 01/07/18 23:36 59 L 16 105/59 01/07/18 21:42 98.8 F 64 18 105/59 01/07/18 21:07 60 16 106/56 01/07/18 19:44 98.5 F 73 16 100/66 Pulse Ox 01/08/18 12:00 97 01/08/18 08:00 96 01/08/18 06:27 06/01/18 04:00 95 01/08/18 00:54 96 01/07/18 23:36 94 L 01/07/18 21:42 97 01/07/18 21:07 98 01/07/18 19:44 98 Intake and Output 01/07/18 01/08/18 01/08/18 22:59 06:59 14:59 Intake Total 103.511 Balance 103.511 Intake: Intake, IV Titration 103.511 Amount Heparin Sodium,Porcine/ 103.511 D5w Pmx 25,000 unit In Dextrose/Water 1 500ml. bag @ 12 UNITS/KG/HR 13. 71 mls/hr IV .Q24H [facility] Rx #:[id number] Other: Voiding Method Toilet # Voids 2 Weight 57.153 kg 57.153 kg Blood pressure 122/72 heart rate 61 afebrile maintaining oxygen saturation on room air. GENERAL: This is a 52-year-old female in no apparent distress at the time of my examination. HEENT: Head is atraumatic, normocephalic. Pupils are equal, round. Sclerae anicteric. Conjunctivae are clear. Mucous membranes of the mouth are moist. Neck is supple. There is no jugular venous distention. No carotid bruit is heard. LUNGS: Clear to auscultation no wheezes, rales or rhonchi. No chest wall tenderness is noted on palpation or with deep breathing. HEART: Regular rate and rhythm without murmurs, rubs or gallops. S1 and S2 heard. ABDOMEN: Soft, nontender. Bowel sounds are heard. No organomegaly noted. EXTREMITIES: No evidence of peripheral edema and no calf tenderness noted. Left upper arm positive ecchymosis and edema. Tender to touch. VASCULAR: Radial and dorsalis pedis pulses palpated, no evidence of clubbing. NEUROLOGIC: Patient is awake, alert and oriented x3. Results 01/07/18 19:45 01/08/18 02:09 Cardiac Enzymes 01/07/18 01/07/18 01/08/18 Range/Units 19:45 19:45 02:09 AST 22 (14-36) U/L CK-MB (CK-2) 0.3 0.4 (0.0-2.4) ng/mL Troponin I <0.012 <0.012 (0.000-0.034) ng/mL 01/08/18 Range/Units 09:20 AST (14-36) U/L CK-MB (CK-2) 0.4 (0.0-2.4) ng/mL Troponin I <0.012 (0.000-0.034) ng/mL Coagulation 01/07/18 01/08/18 Range/Units 19:45 02:09 PT 11.1 (9.0-12.0) sec APTT 22.9 42.7 H (22.0-30.0) sec CBC 01/07/18 Range/Units 19:45 WBC 8.4 (3.8-10.6) k/uL RBC 4.47 (3.80-5.40) m/uL Hgb 13.5 (11.4-16.0) gm/dL Hct 39.2 (34.0-46.0) % Plt Count 217 (150-450) k/uL Comprehensive Metabolic Panel 01/07/18 01/08/18 Range/Units 19:45 02:09 Sodium 141 (137-145) mmol/L Potassium 3.4 L 4.6 (3.5-5.1) mmol/L Chloride 108 H (98-107) mmol/L Carbon Dioxide 23 (22-30) mmol/L BUN 7 (7-17) mg/dL Creatinine 0.60 (0.52-1.04) mg/dL Glucose 75 (74-99) mg/dL Calcium 9.1 (8.4-10.2) mg/dL AST 22 (14-36) U/L ALT 32 (9-52) U/L Alkaline Phosphatase 69 (38-126) U/L Total Protein 6.1 L (6.3-8.2) g/dL Albumin 3.7 (3.5-5.0) g/dL Current Medications Generic Name Dose Route Start Last Admin Trade Name Freq PRN Reason Stop Dose Admin Acetaminophen 650 mg 01/08/18 06:24 01/08/18 09:46 Tylenol Tab PO 650 mg Q4HR PRN Administration Fever and/ or Pain Albuterol Sulfate 2.5 mg 01/08/18 00:25 Ventolin Nebulized INHALATION RT-Q6H PRN Dyspnea Alprazolam 0.25 mg 01/08/18 00:25 Xanax PO Q8HR PRN Anxiety Aspirin 325 mg 01/09/18 09:00 Aspirin PO DAILY [facility] Atorvastatin Calcium 80 mg 01/08/18 21:00 Lipitor PO HS [facility] Citalopram Hydrobromide 20 mg 01/08/18 09:00 Celexa PO DAILY [facility] Clopidogrel Bisulfate 75 mg 01/08/18 09:00 Plavix PO DAILY [facility] Ezetimibe 10 mg 01/08/18 09:00 Zetia PO DAILY [facility] Fluticasone Propionate 1 spray 01/08/18 00:25 Flonase Nasal Wever EA NOSTRIL DAILY PRN Allergy Symptoms Sodium Chloride 1,000 mls @ 20 mls/hr 01/08/18 00:30 01/08/18 07:03 Saline 0.9% IV Not Given .Q24H [facility] Loratadine 10 mg 01/08/18 09:00 Claritin PO DAILY [facility] Multivitamins 1 each 01/08/18 09:00 Theragran PO DAILY [facility] Nitroglycerin 0.4 mg 01/08/18 00:22 01/08/18 07:05 Nitrostat SUBLINGUAL 0.4 mg Q5M PRN Administration Chest Pain Pantoprazole Sodium 40 mg 01/08/18 07:30 Protonix PO AC-BID [facility] Potassium Chloride 10 meq 01/08/18 09:00 K-Dur 10 PO DAILY [facility] Intake and Output 01/07/18 01/08/18 01/08/18 22:59 06:59 14:59 Intake Total 103.511 Balance 103.511 Intake: Intake, IV Titration 103.511 Amount Heparin Sodium,Porcine/ 103.511 D5w Pmx 25,000 unit In Dextrose/Water 1 500ml. bag @ 12 UNITS/KG/HR 13. 71 mls/hr IV .Q24H [facility] Rx #:[id number] Other: Voiding Method Toilet # Voids 2 Weight 57.153 kg 57.153 kg 01/07/18 19:45 01/08/18 02:09 Assessment and Plan Assessment: ASSESSMENT 1. Chest pain, atypical for an acute coronary event. An acute coronary event has been ruled out with no EKG evidence of ischemia and negative cardiac enzymes. 2. History of coronary artery disease status post bypass grafting and subsequent angioplasty 3. Sleep apnea, noncompliant with CPAP 4. Gastroesophageal reflux disease 5. Former tobacco use 6. Anxiety 7. Hypokalemia, resolved after supplementation 8. Hypomagnesemia, resolved pressure supplementation PLAN Discontinue heparin infusion. Discontinue Nitropaste and increased activity. Assess for further symptoms of chest discomfort. Change aspirin to 81 mg daily. Continue atorvastatin, Plavix and zetia. 2-D echo to determine Doppler study has been obtained and reviewed. The patient continued to be observed for another 24 hours for recurrence of chest discomfort. Thank you kindly for this consultation. Nurse Practitioner note has been reviewed, I agree with a documented findings and plan of care. Patient was seen and examined.
[2018-01-08] MEDS ORDERED: ATORVASTATIN 80 MG TAB PO SCH (21:00)
[2018-01-09 00:06] LABS: Cholesterol 132 mg/dL (<200); HDL Cholesterol 57 mg/dL (40-60); LDL Cholesterol,Calculated 59 mg/dL (0-99); Triglycerides 82 mg/dL (<150)
[2018-01-09] MEDS: SODIUM CHLORIDE 0.9% 1,000 ML IV SCH (03:05)
[2018-01-09 08:09] VITALS: BP 95/61; PULSE 52; TEMP 98.5
[2018-01-09 08:15] VITALS: RESP 15
[2018-01-09] MEDS: LORATADINE 10 MG TAB PO SCH (08:31)
[2018-01-09] MEDS: MULTIVITAMINS, THERA 1 EACH TAB PO SCH (08:31)
[2018-01-09] MEDS: EZETIMIBE 10 MG TAB PO SCH (08:31)
[2018-01-09] MEDS: PANTOPRAZOLE 40 MG TABLET PO SCH (08:31)
[2018-01-09] MEDS: POTASSIUM CHLORIDE ER 10 MEQ TAB.ER.PRT PO SCH (08:31)
[2018-01-09] MEDS: CLOPIDOGREL 75 MG TAB PO SCH (08:32)
[2018-01-09] MEDS ORDERED: ASPIRIN 325 MG TAB PO SCH (09:00)
[2018-01-09] MEDS ORDERED: ASPIRIN 81 MG PO SCH (09:00)
--- NOTE | 2018-01-09 09:29 | PN ---
PROGRESS NOTE Mrs. Zeng was in with episode of nondescript chest tightness and anxiety related to possible bee sting. On her left arm there is area of hematoma which is small, but the bruising which is prominent. This is probably related to some injury she may have had, but that she does not recall. Last night, she felt a little disoriented, had some squeezing in the chest and she now has a pleuritic pain and some tenderness on the chest wall. She does not recall any injury. However her troponins are normal. I will do a D-dimer and increase activity. If she has no further symptoms, she can be discharged. Blood pressure is 100/60, pulse rate is about 56 per minute. S1-S2 heard normally. Lungs are clear. Abdomen and lower extremity is unchanged. This lady has history of prior bypass surgery and PCI. She also had some bradycardia issues and therefore her beta mary was discontinued. Her resting heart rate in the night was in the high 40s, but she is doing well at this time without symptoms. We will resume same medications including aspirin, Plavix, statins, and discharged if she is stable without symptoms. I discussed my thoughts in detail with the patient and also with Dr. Mackey. MMFABIOL / IJN: [id number] /
[2018-01-09] MEDS: ACETAMINOPHEN TAB 325 MG TAB PO PRN (10:57)
--- NOTE | 2018-01-09 10:59 | DS ---
DISCHARGE SUMMARY DISCHARGE DIAGNOSES: 1. Chest pain; chest wall versus angina. 2. Coronary artery disease with previous stent placement x4. 3. Coronary artery bypass graft x3 in 2012. 4. Sleep apnea; wears CPAP regularly. 5. Gastroesophageal reflux. 6. Nicotine dependence, in remission. She is a previous smoker; stopped in 2011. 7. Generalized anxiety disorder. 8. Hypokalemia, improved with supplementation. 9. Hypomagnesemia, with replacement. 10.Bradycardia in the face of no beta blockers; could represent sick sinus syndrome. 11.Asthma. 12.Hyperlipidemia. This is a 52-year-old white female who presented to the emergency room with a history and chief complaint of chest pain. She had been mowing the lawn and subsequently developed chest pain. This time this chest pain was similar to that of her previous myocardial infarction, a crushing type of central pain. It was noticed after she had some bruising on her left arm which she thought was probably in reaction to a bee bite. The patient presented here. After some Benadryl, her blood pressure was taken to be systolically in the 90s. Her chest pain was a squeezing type, which then was relieved. She explains like a 16-pound weight on her chest. She does report having associated shortness of breath and chest pain over the last short period of time. She was diagnosed with a left lateral intercostal muscle strain with lifting a 40-pound bag of softener salt and twisting to the right. She had been outside for a long period of time, but she had no nausea and states that she had probably not been taking in as much water as necessary or fluid because of the hot humid weather. Called the ambulance and was brought in. She received sublingual nitroglycerin and 4 aspirin and her chest pain was relieved. Her past medical history shows a social history that she started smoking in 1981. She stopped in 2011. She is an occasional drinker. She is semi-retired. She is at home caring for her , who has squamous cell carcinoma of the neck with metastatic disease, but he is still working. Isra is in his 40s. They live together at her home. She has a large yard. PAST MEDICAL/SURGICAL HISTORY: 1. Coronary artery disease. 2. GE reflux. 3. Apnea; has CPAP. 4. Previous right wrist fracture with surgery by Dr. Horan. 5. She has had nasal fractures with surgical repair. 6. Allergic rhinitis. 7. Sinus problems. 8. Migraines. 9. She had coronary artery bypass in 2011. 10.Multiple stent placements. Date of last stent placement was 2016. 11.Colonoscopy 4 years ago which was negative. PAST ANESTHESIA/BLOOD TRANSFUSION REACTIONS: None. PAST PSYCHOLOGICAL HISTORY: She does have a history of anxiety and mild depression that is stable. Her other psychiatric history: It was stated that she and her spouse live in a single-level house. She has 2 front steps. The patient is independent. She has no home care services. She has a CPAP machine, but it does not work. No pets. 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 Smoking status Past alcohol use: None. No drug use. FAMILY HISTORY: Father in a motor vehicle accident. There was a fair amount of cancer throughout the family. Her mother just recently this year also. There is also COPD and coronary artery disease. Mother did have a CABG. She was a former smoker. PHYSICAL EXAMINATION: At this time vital signs are stable. CHEST: Essentially clear to auscultation. HEART: Sinus rhythm with no murmur. Abdomen is soft, non-tender, with no organomegaly. Lower extremities are within normal limits. Investigating last night showed episodes of bradycardia even into the 40s and 50s on no beta mary. She did have some episode of vertigo yesterday last night when she got up, but she had no chest pain throughout. MEDICATIONS ON DISCHARGE: 1. Xanax 0.25 p.r.n. 2. Nitroglycerin 0.4 p.r.n. 3. Lipitor 80. 4. Holly 180. 5. Aspirin 81. 6. Plavix 75. 7. Theragran vitamin. 8. Albuterol inhaler 2 puffs every 6 hours p.r.n. 9. Flonase nasal spray 1 spray in each nostril daily. 10.Omeprazole 20 mg now b.i.d. 11.Celexa 20 mg daily. She will see Dr. Mari Avendaño in one week. I will see her in a couple of days. No excessive salt. Self home care. Minimal activity. She will see me in the office within one week. MMODL / IJN: [id number] /
== END 2018-01-09 12:22 | disposition home or self-care (01) ==
LOC: EC 19:41 → 3OBS 01-08 00:22
PROVIDERS: ADMIT Family Medicine; ATTEND Family Medicine
DX: R07.89 Other chest pain (principal); I25.10 Atherosclerotic heart disease of native coronary artery without angina pectoris; Z95.1 Presence of aortocoronary bypass graft; Z95.5 Presence of coronary angioplasty implant and graft; R41.0 Disorientation, unspecified; R00.1 Bradycardia, unspecified; R07.81 Pleurodynia; R11.0 Nausea; S40.022A Contusion of left upper arm, initial encounter; R06.02 Shortness of breath; E83.42 Hypomagnesemia; E87.6 Hypokalemia; K21.9 Gastro-esophageal reflux disease without esophagitis; G43.909 Migraine, unspecified, not intractable, without status migrainosus; F41.1 Generalized anxiety disorder; F32.9 Major depressive disorder, single episode, unspecified; J45.909 Unspecified asthma, uncomplicated; J30.9 Allergic rhinitis, unspecified; Z80.9 Family history of malignant neoplasm, unspecified; Z82.5 Family history of asthma and other chronic lower respiratory diseases; F17.211 Nicotine dependence, cigarettes, in remission; G47.33 Obstructive sleep apnea (adult) (pediatric); Z91.19 Patient's noncompliance with other medical treatment and regimen; Z79.899 Other long term (current) drug therapy; Z79.82 Long term (current) use of aspirin; Z79.02 Long term (current) use of antithrombotics/antiplatelets; E78.5 Hyperlipidemia, unspecified; I25.2 Old myocardial infarction; S29.011A Strain of muscle and tendon of front wall of thorax, initial encounter; X50.0XXA Overexertion from strenuous movement or load, initial encounter; Z91.030 Bee allergy status
CPT/HCPCS: 99291; 96376 ×2; 96368 ×2; 96365 ×2; 96366 ×6; 36415; 93005; 93306; 85379; 80061; 80053; 82150; 82550 ×2; 82553 ×2; 83690; 83735 ×2; 84132; 84484 ×2; 85025; 85610; 85730 ×2; 71046; G0378 ×2; J1644 ×2; J3480

== ENCOUNTER → 2020-03-20 | Outpatient (CLI) | payer OTHER | END | disposition home or self-care (01) | LOC: LABWHC1 11:09 | PROVIDERS: ATTEND Internal Medicine Interventional Cardiology | DX: I25.10 Atherosclerotic heart disease of native coronary artery without angina pectoris (principal); E27.40 Unspecified adrenocortical insufficiency | CPT/HCPCS: 36415; 82533 ==

== ENCOUNTER → 2021-01-14 | Outpatient (CLI) | payer OTHER ==
--- NOTE | 2021-01-16 13:37 | MM ---
Reason for exam: screening (asymptomatic). Last mammogram was performed 1 year and 5 months ago. History: Patient is postmenopausal. Family history of breast cancer in aunt at age 70. Physical Findings: A clinical breast exam by your physician is recommended on an annual basis and results should be correlated with mammographic findings. MG 3D Screening Mammo W/Cad Bilateral CC and MLO view(s) were taken. Prior study comparison: August 23, 2019, mammogram, performed at [facility]. The breast tissue is heterogeneously dense. This may lower the sensitivity of mammography. Benign oil cyst calcifications. No significant changes when compared with prior studies. ASSESSMENT: Negative, BI-RAD 1 RECOMMENDATION: Routine screening mammogram of both breasts in 1 year. Patient should continue monthly self breast exams. A negative report should not preclude additional follow up of suspicious palpable abnormalities.
== END | disposition home or self-care (01) ==
LOC: RADMAMWWP 11:08
PROVIDERS: ATTEND Internal Medicine
DX: Z12.31 Encounter for screening mammogram for malignant neoplasm of breast (principal); Z80.3 Family history of malignant neoplasm of breast
CPT/HCPCS: 77063; 77067

== ENCOUNTER 2021-02-14 08:01 | Day surgery (SDC) | payer OTHER ==
[2021-02-13 09:58] VITALS: BMI 20.5
[~2021-02-14 08:01] MED LIST: LACTATED RINGERS 1,000 ML IV SCH; LIDOCAINE 1% (10MG/ML) FOR IV START INTRADERMA PRN
[2021-02-14 08:28] VITALS: RESP 16; TEMP 97.1
[2021-02-14] MEDS ORDERED: ONDANSETRON 4 MG/2 ML VIAL ONE (08:43)
[2021-02-14] MEDS ORDERED: fentaNYL (PF) 50 MCG/ML 2 ML AMP ONE (08:57)
[2021-02-14] MEDS ORDERED: PROPOFOL 10 MG/ML 20 ML VIAL IV ONE (08:57)
[2021-02-14] MEDS ORDERED: LIDOCAINE 1% INJ 10MG/ML (20 ML MDV) ONE (08:57)
[2021-02-14] MEDS ORDERED: MIDAZOLAM 2 MG/2 ML VIAL ONE (08:57)
--- NOTE | 2021-02-14 09:42 | P.PCN ---
Date of Procedure: 02/14/21 Description of Procedure: Brief history: Patient is a 55-year-old female presenting for outpatient esophagogastroduodenoscopy and colonoscopy for evaluation of GERD and screening for malignant neoplasm colon. Long-standing history of heartburn on omeprazole therapy. She also had prior colonoscopy in 2009. No change in bowel habits or blood per rectum reported. Procedure performed: Esophagogastroduodenoscopy with biopsy Colonoscopy with polypectomy and Estimated blood loss: Minimal. Preoperative diagnosis: GERD, screening for a possible colon, last colonoscopy 2009 Anesthesia: MAC Procedure: After informed consent was obtained from the patient was brought into the endos copy unit and IV sedation was administered by anesthesia under continuous monitoring. Initially upper endoscopy was done. The Olympus GF 190 video endoscope was inserted into the mouth and esophagus intubated without any difficulty and was gradually advanced into the stomach and duodenum and carefully examined. The bulb and second part of the duodenum appeared normal, with biopsies taken. The scope was then withdrawn into the stomach adequately insufflated with air and upon careful examination the antrum and body, cardia and fundus appeared normal, except for some mild scattered erythema in the antrum and body suggestive of mild gastritis with biopsies taken. The scope was then withdrawn into the esophagus. The GE junction was located at 39 cm to the incisors with biopsies of the lower esophagus taken in the setting of a somewhat irregular Z line to rule out English's esophagus. The lower esophagus appeared regular with no erythema erosions or ulcerations. Rest of the esophagus appeared normal. Patient tolerated the procedure well. At this time the patient continued to remain sedation. Initial digital rectal examination was normal. Olympus CF 190 video colonoscope was then inserted into the rectum and gradually advanced to the cecum without any difficulty. Careful examination was performed as the scope was gradually being withdrawn. The prep was excellent. The cecum, ascending colon, transverse colon, descending colon, sigmoid colon and rectum appeared normal In the terminal ileum was intubated and appeared normal. 5 polyps measuring 5-8 mm in size removed from the cecum 2, ascending colon and transverse colon. Diminutive hepatic flexure polyp removed with cold forcep polypectomy. Retroflexion was performed in the rectum and no lesions were noted. Patient tolerated the procedure well. Impression: 1. Mild gastritis. Biopsies of the duodenum, antrum and body and lower esophagus. 2. Cold snare polypectomy of flat polyps from the cecum 2, ascending colon and transverse colon. Diminutive hepatic flexure polyp removed with cold forceps polypectomy. Recommendations: Findings of this examination were discussed with the patient as well as her family. Okay to resume diet. Okay to resume medications. Continue current medical management. Await pathology from biopsies and polypectomy. Recommend repeat colonoscopy in 3 years for colon polyps pending pathology from polypectomy. If lower esophageal biopsies consistent with English's esophagus would recommend patient be maintained on omeprazole therapy and repeat EGD in 2 years.
[2021-02-14 09:58] VITALS: BP 144/86; PULSE 66
== END 2021-02-14 10:25 | disposition home or self-care (01) ==
LOC: ORWHC2ENDO 08:01
PROVIDERS: ATTEND Internal Medicine
DX: Z12.11 Encounter for screening for malignant neoplasm of colon (principal); K31.9 Disease of stomach and duodenum, unspecified; K21.9 Gastro-esophageal reflux disease without esophagitis; D12.0 Benign neoplasm of cecum; D12.2 Benign neoplasm of ascending colon; D12.3 Benign neoplasm of transverse colon; Z87.891 Personal history of nicotine dependence; Z95.1 Presence of aortocoronary bypass graft; I25.10 Atherosclerotic heart disease of native coronary artery without angina pectoris; I25.2 Old myocardial infarction; Z95.820 Peripheral vascular angioplasty status with implants and grafts; J44.9 Chronic obstructive pulmonary disease, unspecified; G47.33 Obstructive sleep apnea (adult) (pediatric); E07.9 Disorder of thyroid, unspecified; G43.909 Migraine, unspecified, not intractable, without status migrainosus; F41.9 Anxiety disorder, unspecified; Z98.890 Other specified postprocedural states; Z79.02 Long term (current) use of antithrombotics/antiplatelets; Z79.82 Long term (current) use of aspirin; Z79.890 Hormone replacement therapy; Z79.899 Other long term (current) drug therapy
CPT/HCPCS: 88305; 45380; 45385; 43239; J2250; J2405; J2001; J3010; J2704

== ENCOUNTER → 2021-04-08 | Outpatient (CLI) | payer OTHER ==
[2021-04-08 11:32] LABS: HCT 43.1 % (34.0-46.0); HGB 14.3 gm/dL (11.4-16.0); MCH 32.3 pg (25.0-35.0); MCHC 33.2 g/dL (31.0-37.0); MCV 97.2 fL (80.0-100.0); Mean Platelet Volume 7.7; Platelet Count 238 k/uL (150-450); RBC 4.43 m/uL (3.80-5.40); RDW 14.5 % (11.5-15.5); WBC 6.8 k/uL (3.8-10.6)
[2021-04-08 11:55] LABS: African American GFR (CKD) >90 (>60 ml/min/1.73 sqM); Anion Gap 6 mmol/L; Blood Urea Nitrogen 9 mg/dL (7-17); Carbon Dioxide 24 mmol/L (22-30); Chloride 110 mmol/L (98-107); Non-African American GFR(CKD) >90 (>60 ml/min/1.73 sqM); Sodium 140 mmol/L (137-145)
== END | disposition home or self-care (01) ==
LOC: LABPAT 10:41
PROVIDERS: ATTEND Internal Medicine Interventional Cardiology
DX: Z01.812 Encounter for preprocedural laboratory examination (principal); R94.39 Abnormal result of other cardiovascular function study
CPT/HCPCS: 36415; 80051; 82565; 84520; 85027

== ENCOUNTER → 2022-01-31 | Outpatient (CLI) | payer OTHER ==
--- NOTE | 2022-02-03 14:35 | MM ---
Reason for Exam: Screening (asymptomatic). Last screening mammogram was performed 12 month(s) ago. Patient History: Menarche at age 12. Patient has no children. Postmenopausal. Maternal aunt had breast cancer, age 70. Risk Values: [place] 5 year model risk: 1.4%. NCI Lifetime model risk: 8.9%. Prior Study Comparison: 08/23/2019 Screening Mammogram, [facility]. 01/14/2021 Bilateral Screening Mammogram, [facility]. Tissue Density: The breast tissue is heterogeneously dense. This may lower the sensitivity of mammography. Findings: Analyzed By CAD. Benign bilateral oil cyst calcifications. No significant change from prior exams. Overall Assessment: Benign, BI-RAD 2 Management: Screening Mammogram of both breasts in 1 year. 1. Patient should continue monthly self breast exams. 2. A clinical breast exam by your physician is recommended on an annual basis. 3. This exam should not preclude additional follow-up of suspicious palpable abnormalities. Electronically signed and approved by: Toro Lundberg M.D. Radiologist
== END | disposition home or self-care (01) ==
LOC: RADMAMWWP 15:36
PROVIDERS: ATTEND Internal Medicine Geriatric Medicine
DX: Z12.31 Encounter for screening mammogram for malignant neoplasm of breast (principal); R92.8 Other abnormal and inconclusive findings on diagnostic imaging of breast
CPT/HCPCS: 77063; 77067

== ENCOUNTER 2023-01-08 18:32 | Emergency (ER) | payer MEDICARE, OTHER ==
--- NOTE | 2023-01-08 19:25 | ED ---
General Adult HPI - General Chief complaint: Shortness of Breath Stated complaint: chest pain, SOB Time Seen by Provider: 01/08/23 19:03 Source: patient Mode of arrival: ambulatory Limitations: no limitations - History of Present Illness Initial comments: Dictation was produced using [employer] dictation software. please excuse any grammatical, word or spelling errors. Chief Complaint: 57-year-old female past medical history of CABG presents to the ER for chest pain History of Present Illness: Is 57-year-old female she has past medical history of coronary artery bypass grafting, coronary artery disease. The last 48 hours she's been having squeezing epigastric pressure. States that she also had some nausea and associated shortness of breath. States that her symptoms feel like when she has had a heart attack in the past. Denies any associated diaphoresis. She did report some clamminess associated with the pain. Physical pains worse with exertion. The ROS documented in this emergency department record has been reviewed and confirmed by me. Those systems with pertinent positive or negative responses have been documented in the HPI. All other systems are other negative and/or noncontributory. - Related Data Home Medications Medication Instructions Recorded Confirmed ALPRAZolam [Xanax] 0.25 mg PO BID PRN 06/09/15 01/08/23 Aspirin 81 mg PO HS 06/09/15 01/08/23 Fexofenadine HCl [Holly Allergy] 180 mg PO DAILY 06/09/15 01/08/23 Nitroglycerin Sl Tabs [Nitrostat] 0.4 mg SL Q5M PRN 06/09/15 01/08/23 Albuterol Inhaler [Ventolin Hfa 2 puff INHALATION RT-QID PRN 03/23/17 01/08/23 Inhaler] Clopidogrel Bisulfate [Plavix] 75 mg PO DAILY 03/23/17 01/08/23 Fluticasone Nasal [place] [Flonase 2 spr EA NOSTRIL DAILY 05/08/17 01/08/23 Nasal [place]] Potassium Chloride [K-Tab ER] 8 meq PO DAILY 05/08/17 01/08/23 Ezetimibe [Zetia] 10 mg PO HS 01/07/18 01/08/23 Levothyroxine Sodium 25 mcg PO DAILY 02/13/21 01/08/23 Metoprolol Tartrate [Lopressor] 12.5 mg PO DAILY 02/13/21 01/08/23 Midodrine [ProAmatine] 5 mg PO DAILY 02/13/21 01/08/23 Montelukast [Singulair] 10 mg PO HS 02/13/21 01/08/23 Omeprazole 40 mg PO HS 02/13/21 01/08/23 Rosuvastatin Calcium 40 mg PO HS 02/13/21 01/08/23 Butalb/APAP/Caff 50-325-40Mg 1 tab PO Q4-6H PRN 04/08/21 01/08/23 [Fioricet 50-325-40] Sertraline [Zoloft] 25 mg PO HS 04/08/21 01/08/23 Fluticasone Propionate [Flovent 2 puff INHALATION RT-BID 01/08/23 01/08/23 Hfa 220 mcg] Folic Acid 0.8 mg PO DAILY 01/08/23 01/08/23 Omalizumab [Xolair] 300 mg SQ Q30D 01/08/23 01/08/23 Rimegepant Sulfate [Nurtec Odt] 75 mg PO DAILY PRN 01/08/23 01/08/23 Topiramate [Topamax] 50 mg PO BID 01/08/23 01/08/23 Zoledronic Acid 5Mg/100Ml Pmx 1 dose IVPB Q365D 01/08/23 01/08/23 [Reclast] Allergies Allergy/AdvReac Type Severity Reaction Status Date / Time almond Allergy Unknown Verified 01/08/23 21:27 coffee (Coffea arabica) Allergy Unknown Verified 01/08/23 21:27 soy Allergy Unknown Verified 01/08/23 21:27 yeast, dried Allergy Unknown Verified 01/08/23 21:27 bakers yeast Allergy Unknown Uncoded 01/08/23 21:27 brewers yeast Allergy Unknown Uncoded 01/08/23 21:27 guinean cheese Allergy Unknown Uncoded 01/08/23 21:27 yogurt Allergy Unknown Uncoded 01/08/23 21:27 Review of Systems ROS Statement: Those systems with pertinent positive or pertinent negative responses have been documented in the HPI. ROS Other: All systems not noted in ROS Statement are negative. Past Medical History Past Medical History: Asthma, Coronary Artery Disease (CAD), Chest Pain / Angina, COPD, GERD/Reflux, Sleep Apnea/CPAP/BIPAP, Thyroid Disorder Additional Past Medical History / Comment(s): does not use c-pap., hx R wrist fx & nasal fx with surgery,, allergic rhinitis, sinus problems, migraines., See Cardiology H & P. History of Any Multi-Drug Resistant Organisms: None Reported Past Surgical History: Coronary Bypass/CABG, Heart Catheterization, Heart Catheterization With Stent, Orthopedic Surgery Additional Past Surgical History / Comment(s): 2011 CABG- 3 vessel, Heart cath with 2 stents (2013) and 1 stent (2016).stent 2020, ORIF R wrist, Septoplasty/turbinate reduction, nasal fracture repair, colonoscopy. Past Anesthesia/Blood Transfusion Reactions: No Reported Reaction Date of Last Stent Placement:: 2016 Past Psychological History: Anxiety Smoking Status: Former smoker Past Alcohol Use History: None Reported Past Drug Use History: None Reported - Past Family History Father Family Medical History: Unable to Obtain Additional Family Medical History / Comment(s): Pt was 11 yrs old when her fat her in a MVA. She states cancer runs on her dad's side of the family. Mother Family Medical History: COPD, Coronary Artery Disease (CAD) Additional Family Medical History / Comment(s): Mother has had CABG. She was a smoker. She is on oxygen. General Exam - General Exam Comments Initial Comments: PHYSICAL EXAM: General Impression: Alert and oriented x3, not in acute distress HEENT: Normocephalic atraumatic, extra-ocular movements intact, pupils equal and reactive to light bilaterally, mucous membranes moist. Cardiovascular: Heart regular rate and rhythm Chest: Able to complete full sentences, no retractions, no tachypnea Abdomen: abdomen soft, non-tender, non-distended, no organomegaly Musculoskeletal: Pulses present and equal in all extremities, no peripheral edema Motor: no focal deficits noted Neurological: CN II-XII grossly intact, no focal motor or sensory deficits noted Skin: Intact with no visualized rashes Psych: Normal affect and mood Limitations: no limitations Course Vital Signs 01/08/23 01/08/23 01/08/23 18:37 19:25 22:06 Temperature 98.0 F Pulse Rate 62 56 L 50 L Respiratory 18 16 18 Rate Blood Pressure 113/80 120/80 125/80 O2 Sat by Pulse 98 97 98 Oximetry EKG Findings - EKG Comments: EKG Findings:: My EKG interpretation: Ventricular rate 56, sinus bradycardia, MD interval 145, QRS 77, QTC 4:15. No MD prolongation, no QTC prolongation, no ST or T-wave changes noted. Overall, this EKG is unremarkable Medical Decision Making - Medical Decision Making Was pt. sent in by a medical professional or institution (, PA, [employer], urgent care, hospital, or usp...) When possible be specific @ -No Did you speak to anyone other than the patient for history (EMS, parent, family, police, friend...)? What history was obtained from this source @ -No Did you review nursing and triage notes (agree or disagree)? Why? @ -I reviewed and agree with nursing and triage notes Were old charts reviewed (outside hosp., previous admission, EMS record, old EKG, old radiological studies, urgent care reports/EKG's, usp records)? Report findings @ -Prior charts are reviewed showing the patient's history of coronary artery disease and CABG Differential Diagnosis (chest pain, altered mental status, abdominal pain women, abdominal pain men, vaginal bleeding, musculoskeletal, weakness, fever, dyspnea, syncope, headache, dizziness, GI bleed, back pain, seizure, CVA, palpatations, mental health)? @ -Differential Chest Pain: Stable Angina, Unstable Angina, STEMI, NSTEMI Aortic Dissection, Pneumothorax, Musculoskeletal, Esophageal Spasm GERD, Cholecystitis, Pancreatitis, Zoster, this is not meant to be an all-inclusive list. EKG interpreted by me (3pts min.). @ -See above X-rays interpreted by me (1pt min.). @ -Chest x-ray shows no acute processes CT interpreted by me (1pt min.). @ -None done U/S interpreted by me (1pt. min.). @ -None done What testing was considered but not performed or refused? (CT, X-rays, U/S, labs)? Why? @ -None What meds were considered but not given or refused? Why? @ -None Did you discuss the management of the patient with other professionals (professionals i.e. , PA, [employer], lab, RT, psych nurse, social service assistant, supervisor spring up, teacher, u.s. revenue officer, top case assembler)? Give summary @ -No Was smoking cessation discussed for >3mins.? @ -No Was critical care preformed (if so, how long)? @ -No Were there social determinants of health that impacted care today? How? (Homelessness, low income, unemployed, alcoholism, drug addiction, transportation, low edu. Level, literacy, decrease access to med. care, shelter, rehab)? @ -No Was there de-escalation of care discussed even if they declined (Discuss DNR or withdrawal of care, Hospice)? DNR status @ -No What co-morbidities impacted this encounter? (DM, HTN, Smoking, COPD, CAD, C ancer, CVA, ARF, Chemo, Hep., AIDS, mental health diagnosis, sleep apnea, morbid obesity)? @ -CAD Was patient admitted / discharged? Hospital course, mention meds given and route, prescriptions, significant lab abnormalities, going to OR and other pertinent info. @ -57-year-old female with extensive cardiac history presents to the ER for sy mptoms suspicious for acute coronary syndrome. Vital signs upon arrival are within acceptable limits. EKG is unremarkable. Initial troponin was unremarkable. Discussed patient that she would be a candidate to be admitted observation for cardiac monitoring. Patient refused and would prefer to be discharged if she had a negative second troponin. Second troponin is normal. Patient evaluated bedside on his stable medical condition. Patient understands the risks and given strict return precautions. Patient given aspirin discharged Undiagnosed new problem with uncertain prognosis? @ -No Drug Therapy requiring intensive monitoring for toxicity (Heparin, Nitro, Insulin, Cardizem)? @ -No Were any procedures done? @ -No Diagnosis/symptom? Acute, or Chronic, or Acute on Chronic? Uncomplicated (without systemic symptoms) or Complicated (systemic symptoms)? @ -Chest pain Side effects of treatment? @ -No Exacerbation, Progression, or Severe Exacerbation? @ -No Poses a threat to life or bodily function? How? (Chest pain, [place], [place], pneumonia, PE, COPD, DKA, ARF, appy, cholecystitis, CVA, Diverticulitis, Homicidal, Suicidal, threat to staff... and all critical care pts) @ -yes - Lab Data Result diagrams: 01/08/23 19:22 01/08/23 19:22 Lab Results 01/08/23 01/08/23 01/08/23 Range/Units 19:22 19:22 19:22 WBC 5.1 (3.8-10.6) k/uL RBC 4.48 (3.80-5.40) m/uL Hgb 14.1 (11.4-16.0) gm/dL Hct 40.9 (34.0-46.0) % MCV 91.2 (80.0-100.0) fL MCH 31.5 (25.0-35.0) pg MCHC 34.5 (31.0-37.0) g/dL RDW 12.2 (11.5-15.5) % Plt Count 207 (150-450) k/uL MPV 7.8 Neutrophils % 59 % Lymphocytes % 32 % Monocytes % 5 % Eosinophils % 1 % Basophils % 1 % Neutrophils # 3.0 (1.3-7.7) k/uL Lymphocytes # 1.6 (1.0-4.8) k/uL Monocytes # 0.3 (0-1.0) k/uL Eosinophils # 0.1 (0-0.7) k/uL Basophils # 0.0 (0-0.2) k/uL PT 10.3 (9.0-12.0) sec INR 1.0 (<1.2) APTT 22.3 (22.0-30.0) sec Sodium 138 (137-145) mmol/L Potassium 4.1 (3.5-5.1) mmol/L Chloride 108 H (98-107) mmol/L Carbon Dioxide 20 L (22-30) mmol/L Anion Gap 10 mmol/L BUN 6 L (7-17) mg/dL Creatinine 0.72 (0.52-1.04) mg/dL Est GFR (CKD-EPI)AfAm >90 (>60 ml/min/1.73 sqM) Est GFR (CKD-EPI)NonAf >90 (>60 ml/min/1.73 sqM) Glucose 98 (74-99) mg/dL Calcium 9.0 (8.4-10.2) mg/dL Magnesium 1.7 (1.6-2.3) mg/dL Total Bilirubin 0.4 (0.2-1.3) mg/dL AST 50 H (14-36) U/L ALT 42 H (4-34) U/L Alkaline Phosphatase 46 (38-126) U/L Troponin I (0.000-0.034) ng/mL Total Protein 6.5 (6.3-8.2) g/dL Albumin 3.9 (3.5-5.0) g/dL 01/08/23 01/08/23 Range/Units 19:22 21:26 WBC (3.8-10.6) k/uL RBC (3.80-5.40) m/uL Hgb (11.4-16.0) gm/dL Hct (34.0-46.0) % MCV (80.0-100.0) fL MCH (25.0-35.0) pg MCHC (31.0-37.0) g/dL RDW (11.5-15.5) % Plt Count (150-450) k/uL MPV Neutrophils % % Lymphocytes % % Monocytes % % Eosinophils % % Basophils % % Neutrophils # (1.3-7.7) k/uL Lymphocytes # (1.0-4.8) k/uL Monocytes # (0-1.0) k/uL Eosinophils # (0-0.7) k/uL Basophils # (0-0.2) k/uL PT (9.0-12.0) sec INR (<1.2) APTT (22.0-30.0) sec Sodium (137-145) mmol/L Potassium (3.5-5.1) mmol/L Chloride (98-107) mmol/L Carbon Dioxide (22-30) mmol/L Anion Gap mmol/L BUN (7-17) mg/dL Creatinine (0.52-1.04) mg/dL Est GFR (CKD-EPI)AfAm (>60 ml/min/1.73 sqM) Est GFR (CKD-EPI)NonAf (>60 ml/min/1.73 sqM) Glucose (74-99) mg/dL Calcium (8.4-10.2) mg/dL Magnesium (1.6-2.3) mg/dL Total Bilirubin (0.2-1.3) mg/dL AST (14-36) U/L ALT (4-34) U/L Alkaline Phosphatase (38-126) U/L Troponin I <0.012 <0.012 (0.000-0.034) ng/mL Total Protein (6.3-8.2) g/dL Albumin (3.5-5.0) g/dL Disposition Clinical Impression: Chest pain Disposition: HOME SELF-CARE Condition: Fair Instructions (If sedation given, give patient instructions): Chest Pain (ED) Is patient prescribed a controlled substance at d/c from ED?: No Referrals: Jose Dolan MD [Primary Care Provider] - 1-2 days Time of Disposition: 22:33
--- NOTE | 2023-01-08 19:43 | XR ---
EXAMINATION TYPE: XR chest 2V DATE OF EXAM: 01/08/2023 7:39 PM COMPARISON: Chest radiographs from 01/07/2018 TECHNIQUE: XR chest 2V Frontal and lateral views of the chest. CLINICAL INDICATION:Female, 57 years old with history of Chest Pain; FINDINGS: Lungs/Pleura: There is no evidence of pleural effusion, focal consolidation, or pneumothorax. Pulmonary vascularity: Unremarkable. Heart/mediastinum: Cardiomediastinal silhouette is unremarkable. Post CABG change. Musculoskeletal: No acute osseous pathology. Midline sternotomy wires are noted and stable. IMPRESSION: Chronic changes without evidence for acute process.
[2023-01-08 20:03] LABS: Basophils % (A) 1 %; Eosinophils # (A) 0.1 k/uL (0-0.7); Eosinophils % (A) 1 %; HCT 40.9 % (34.0-46.0); HGB 14.1 gm/dL (11.4-16.0); Lymphocytes # (A) 1.6 k/uL (1.0-4.8); Lymphocytes % (A) 32 %; MCH 31.5 pg (25.0-35.0); MCHC 34.5 g/dL (31.0-37.0); MCV 91.2 fL (80.0-100.0); Mean Platelet Volume 7.8; Monocytes # (A) 0.3 k/uL (0-1.0); Monocytes % (A) 5 %; Neutrophils % (A) 59 %; Platelet Count 207 k/uL (150-450); RBC 4.48 m/uL (3.80-5.40); RDW 12.2 % (11.5-15.5); WBC 5.1 k/uL (3.8-10.6)
[2023-01-08 20:15] LABS: ALT 42 U/L (4-34); AST 50 U/L (14-36); African American GFR (CKD) >90 (>60 ml/min/1.73 sqM); Albumin 3.9 g/dL (3.5-5.0); Alkaline Phosphatase 46 U/L (38-126); Anion Gap 10 mmol/L; Blood Urea Nitrogen 6 mg/dL (7-17); Carbon Dioxide 20 mmol/L (22-30); Chloride 108 mmol/L (98-107); Glucose 98 mg/dL (74-99); Magnesium 1.7 mg/dL (1.6-2.3); Non-African American GFR(CKD) >90 (>60 ml/min/1.73 sqM); Potassium 4.1 mmol/L (3.5-5.1); Sodium 138 mmol/L (137-145); Total Bilirubin 0.4 mg/dL (0.2-1.3); Total Protein 6.5 g/dL (6.3-8.2)
[2023-01-08 20:18] LABS: Partial Thromboplastin Time 22.3 sec (22.0-30.0); Prothrombin Time 10.3 sec (9.0-12.0)
[2023-01-08] MEDS ORDERED: ACETAMINOPHEN TAB 500 MG TAB PO STA (20:42)
[2023-01-08 22:10] VITALS: RESP 18
[2023-01-08 22:46] VITALS: BP 117/82; PULSE 53; TEMP 98.5
== END 2023-01-08 22:44 | disposition home or self-care (01) ==
LOC: EC 18:32
DX: R07.89 Other chest pain (principal); F41.9 Anxiety disorder, unspecified; G47.30 Sleep apnea, unspecified; I25.10 Atherosclerotic heart disease of native coronary artery without angina pectoris; I25.2 Old myocardial infarction; J44.9 Chronic obstructive pulmonary disease, unspecified; K21.9 Gastro-esophageal reflux disease without esophagitis; Z79.51 Long term (current) use of inhaled steroids; Z79.82 Long term (current) use of aspirin; Z79.899 Other long term (current) drug therapy; Z87.891 Personal history of nicotine dependence
CPT/HCPCS: 36415; 71046; 80053; 83735; 84484; 85025; 85610; 85730; 93005; 99285

== ENCOUNTER → 2023-03-25 | Outpatient (CLI) | payer MEDICARE, OTHER ==
--- NOTE | 2023-03-26 09:49 | MM ---
Reason for Exam: Screening (asymptomatic). Last mammogram was performed 1 year(s) and 2 month(s) ago. Patient History: Menarche at age 12. Patient has no children. Postmenopausal. Maternal aunt had breast cancer, age 70. Risk Values: Galina 5 year model risk: 1.4%. NCI Lifetime model risk: 8.7%. Prior Study Comparison: 08/23/2019 Screening Mammogram, [facility]. 01/14/2021 Bilateral Screening Mammogram, [facility]. 01/31/2022 Bilateral MG 3D screening mammo w/cad, [facility]. Tissue Density: The breast tissue is heterogeneously dense. This may lower the sensitivity of mammography. Findings: Analyzed By CAD. There is no suspicious group of microcalcifications or new suspicious mass in either breast. Benign calcifications within both breasts. Overall Assessment: Benign, BI-RAD 2 Management: Screening Mammogram of both breasts in 1 year. A clinical breast exam by your physician is recommended on an annual basis and results should be correlated with mammographic findings. Note on Galina scores and lifetime risk: 1. A Galina score greater than 3% is considered moderate risk. If this is the case, consider specialist referral to assess eligibility for a risk reducing agent. If overall lifetime risk for the development of breast cancer is 20% or higher, the patient may qualify for future screening with alternating mammogram and breast MRI. Electronically signed and approved by: Dewayne Lerma D.O.
== END | disposition home or self-care (01) ==
LOC: RADMAMWWP 12:39
PROVIDERS: ATTEND Internal Medicine Geriatric Medicine
DX: Z12.31 Encounter for screening mammogram for malignant neoplasm of breast (principal); Z78.0 Asymptomatic menopausal state; Z80.3 Family history of malignant neoplasm of breast
CPT/HCPCS: 77063; 77067

== ENCOUNTER → 2024-04-12 | Outpatient (CLI) | payer MEDICARE ==
--- NOTE | 2024-04-13 10:07 | MM ---
Reason for Exam: Screening (asymptomatic). Last mammogram was performed 1 year(s) and 1 month(s) ago. Patient History: Menarche at age 12. Patient has no children. Postmenopausal. Maternal aunt had breast cancer, age 70. Risk Values: Galina 5 year model risk: 1.5%. NCI Lifetime model risk: 8.5%. Prior Study Comparison: 01/14/2021 Bilateral Screening Mammogram, [facility]. 01/31/2022 Bilateral MG 3D screening mammo w/cad, [facility]. 03/25/2023 Bilateral MG 3D screening mammo w/cad, [facility]. Tissue Density: The breasts are extremely dense, which lowers the sensitivity of mammography. Findings: Analyzed By CAD. There is no suspicious group of microcalcifications or new suspicious mass in either breast. Benign-appearing calcifications. Overall Assessment: Benign, BI-RAD 2 Management: Screening Mammogram of both breasts in 1 year. . Patient should continue monthly self-breast exams. A clinical breast exam by your physician is recommended on an annual basis. This exam should not preclude additional follow-up of suspicious palpable abnormalities. Note on Galina scores and lifetime risk: 1. A Galina score greater than 3% is considered moderate risk. If this is the case, consider specialist referral to assess eligibility for a risk reducing agent. 2. If overall lifetime risk for the development of breast cancer is 20% or higher, the patient may qualify for future screening with alternating mammogram and breast MRI. Electronically signed and approved by: Jose Davis M.D. Radiologis
== END | disposition home or self-care (01) ==
LOC: RADMAMWWP 14:05
PROVIDERS: ATTEND Internal Medicine Geriatric Medicine
DX: Z12.31 Encounter for screening mammogram for malignant neoplasm of breast
CPT/HCPCS: 77063; 77067

== ENCOUNTER → 2024-11-18 | Outpatient (CLI) | payer MEDICARE ==
--- NOTE | 2024-11-18 15:47 | BD ---
EXAMINATION TYPE: Axial Bone Density DATE OF EXAM: 11/18/2024 CLINICAL HISTORY: 59 years old Female. ICD-10 CODE: M81.0 AGE-RELATED OSTEOPOROSIS W/O CURRENT PATHO LO , Additional History: Height: 64 Weight: 116.3 FRAX RISK QUESTIONS: Alcohol (3 or more units per day): no Family History (Parent hip fracture): no Glucocorticoids (More than 3mos): no (Ex: prednisone, prednisolone, methylprednisolone, dexamethasone, and hydrocortisone). History of Fracture in Adulthood: RT wrist Secondary Osteoporosis: 1. Type 1 Diabetes: no 2. Hyperthyroidism: no 3. Menopause before 45: yes 4. Malnutrition: no 5. Chronic liver disease: no Rheumatoid Arthritis: no Current Tobacco Use: no RISK FACTORS HISTORY OF: Hip Fracture (Right/Left): no Spine Fracture: no History of Wrist Fracture: RT Wrist When: age 45 Surgery to Spine/Hip(right/left)/Wrist (right/left): RT Wrist When: age 45 MEDICATIONS: Thyroid Medications: Levothyroxine How Long: past 2 years Osteoporosis Medications: Reclast yearly How Lon year EXAM MEASUREMENTS: Bone mineral densitometry was performed using the [employer] System. Bone mineral density as measured about the Lumbar spine is: ----- L1-L4(G/cm2): 0.802 T Score Values are as follows: ----- L1: -2.7 ----- L2: -3.1 ----- L3: -3.2 ----- L4: -3.5 ----- L1-L4: -3.1 Z Score Values are as follows: ----- L1: -1.1 ----- L2: -1.6 ----- L3: -1.7 ----- L4: -2.0 ----- L1-L4: -1.6 Baseline Study Bone mineral density about the R hip (g/cm2): 0.691 Bone mineral density about the L hip (g/cm2): 0.706 T Score values are as follows: -----R Neck: -2.4 -----L Neck: -2.5 -----R Total: -2.5 -----L Total: -2.4 Z Score values are as follows: -----R Neck: -1.0 -----L Neck: -1.0 -----R Total: -1.3 -----L Total: -1.2 Baseline Study FRAX%s: The graph provided illustrates a 17.1chance for a major osteoporotic fx and a 3.7chance for t he hips probability for fx in 10 years time. IMPRESSION: Osteoporosis (T Score less than -2.5). There is increased fracture risk and therapy is usually indicated based on age. Re-Screen 1-2 years. NOTE: T-SCORE=SD OF THE YOUNG ADULT MEAN. [facility], , 11/18/2024 3:44 PM
== END | disposition home or self-care (01) ==
LOC: RADBDWWP 14:46
PROVIDERS: ATTEND Internal Medicine Geriatric Medicine
DX: M81.0 Age-related osteoporosis without current pathological fracture (principal); Z78.0 Asymptomatic menopausal state
CPT/HCPCS: 77080

== ENCOUNTER → 2025-01-17 | Outpatient (CLI) | payer MEDICARE ==
[2025-01-17 19:33] LABS: ALT 32 U/L (8-44); AST 34 U/L (13-35); Albumin 3.9 g/dL (3.8-4.9); Albumin/Globulin Ratio 1.86 Ratio (1.60-3.17); Alkaline Phosphatase 50 U/L (41-126); BUN/Creat Ratio 7.71 Ratio (12.00-20.00); Blood Urea Nitrogen 5.4 mg/dL (9.0-27.0); Calcium 9.2 mg/dL (8.7-10.3); Carbon Dioxide 21.9 mmol/L (21.6-31.8); Chloride 112 mmol/L (96-109); Chol/HDL Ratio 2.73 Ratio; Globulin 2.1 g/dL (1.6-3.3); Glucose 92 mg/dL (70-110); LDL Cholesterol,Calculated 69.1 mg/dL (0.0-131.0); Sodium 144 mmol/L (135-145); T4, Free (Free Thyroxine) 0.92 ng/dL (0.80-1.80); Total Bilirubin <0.2 mg/dL (0.3-1.2)
[2025-01-17 20:14] LABS: Basophils # (A) 0.05 X 10*3/uL (0.00-0.10); Basophils % (A) 0.8 %; Eosinophils # (A) 0.05 X 10*3/uL (0.04-0.35); Eosinophils % (A) 0.8 %; HCT 41.7 % (37.2-46.3); HGB 13.6 g/dL (12.0-15.0); Lymphocytes % (A) 21.9 %; MCH 31.9 pg (27.0-32.0); MCHC 32.6 g/dL (32.0-37.0); MCV 97.7 FL (80.0-97.0); Monocytes # (A) 0.38 X 10*3/uL (0.20-1.00); Monocytes % (A) 5.9 %; NRBC Per 100 WBC 0 X 10*3/uL (0.00-0.01); Neutrophils % (A) 70.3 %; Platelet Count 216 X 10*3/uL (140-440); RBC 4.27 X 10*6/uL (4.10-5.20)
== END | disposition home or self-care (01) ==
LOC: LABWHC1 14:47
PROVIDERS: ATTEND Nurse Practitioner Family
DX: Z00.00 Encounter for general adult medical examination without abnormal findings (principal); I25.10 Atherosclerotic heart disease of native coronary artery without angina pectoris; E78.2 Mixed hyperlipidemia; E03.9 Hypothyroidism, unspecified; R73.9 Hyperglycemia, unspecified
CPT/HCPCS: 36415; 80053; 80061; 83036; 84439; 84443; 84484; 85025